=== PATIENT | female | born 1935 | race African-American/Black ===

== ENCOUNTER 2018-08-04 06:16 | Day surgery (SDC) | payer MEDICARE, MEDICAID ==
--- NOTE | 2018-08-02 10:51 | Pre-Procedure Note/Attestation ---
Pre-Procedure Note/Attestation Complete Prior to Procedure Planned Procedure: right Procedure Narrative: phaco with IOL Indications for Procedure Pre-Operative Diagnosis: cataract Attestation I attest that I discussed the nature of the procedure; its benefits; risks and complications; and alternatives (and the risks and benefits of such alternatives ), prior to the procedure, with the patient (or the patient's legal technical services representative). I attest that, if there was a reasonable possibility of needing a blood transfusion, the patient (or the patient's legal technical services representative) was given the [facility] standardized written summary, pursuant to the [place] Blood Safety Act ([place] Health and Safety Code # 1645, as amended). I attest that I re-evaluated the patient just prior to the surgery and that there has been no change in the patient's H&P, except as documented below: Wil Reyes MD Aug 02, 2018 10:50
--- NOTE | 2018-08-02 11:34 | Opthalmology H&P ---
Ophthalmology H&P H&P Chief Complaint: decreased vision in right eye HPI Vision Affects Ability to: read, focus/use eyes together, manage personal affairs HPI Narrative BLURRY VISION Exam Visual Acuity: OD;20/50 OS;20/50 Tension: OD; 12 OS;14 Eye Exam: normal OU: external exam, palpebral fissure-width, marginal reflex distance, levator function, corneas, anterior chambers, fundus exam; findings: lens - CORTICAL OU Assessment/Plan Diagnosis: (1) Cortical cataract of right eye Treatment Plan: cataract extraction w/ lens implant Goals of Treatment: improvement of vision, enhance quality of life Attestation Attestation The risks and benefits of the surgery as well as alternative procedures were explained to the patient in detail. Wil Reyes MD Aug 02, 2018 11:34
[2018-08-04] VITALS (9 sets, daily range): BP systolic 118–131; BP diastolic 68–89
[~2018-08-04] VITALS: Ht 167.6 cm; Wt 86.2 kg
[2018-08-04] MEDS ORDERED: Tetracaine 0.5% Opth 4ml Soln RIGHT EYE ONE (07:00)
[2018-08-04] MEDS ORDERED: Akten 3.5% 1ml Btl RIGHT EYE ONE (07:00)
[2018-08-04] MEDS ORDERED: Diclofenac Sod 0.1% Op Soln RIGHT EYE SCH (07:00)
[2018-08-04] MEDS: Cyclopentolate 1% Opth Sol 2ml RIGHT EYE SCH ×3 (09:45→10:06)
[2018-08-04] MEDS: Phenylephrine 10% Opth Soln 5ml RIGHT EYE SCH ×3 (09:46→10:06)
[2018-08-04] MEDS: Tropicamide 1% Opth 15ml Soln RIGHT EYE SCH ×3 (09:46→10:06)
[2018-08-04] MEDS: Tobramycin Op Soln 0.3% 5ml RIGHT EYE SCH ×3 (09:47→10:07)
[2018-08-04] MEDS ORDERED: EPINEPHrine 1mg/1ml Amp ONE (10:10)
[2018-08-04] MEDS ORDERED: BSS 500ml btl ONE (10:10)
[2018-08-04] MEDS ORDERED: Povidone-Iodine 5% opth solution ONE (10:11)
[2018-08-04] MEDS ORDERED: BSS 15ml BTL ONE (10:11)
[2018-08-04] MEDS ORDERED: Sodium Hyaluronate 14 mg/ml 0.85ml ONE (10:11)
[2018-08-04] MEDS ORDERED: Midazolam 2mg/2ml Inj ONE (10:14)
[2018-08-04] MEDS ORDERED: ASPIR-LOW81 MG ORAL (10:22)
[2018-08-04] MEDS ORDERED: ADALAT20 MG ORAL (10:22)
[2018-08-04] MEDS ORDERED: ELIQUIS5 MG PO (10:22)
[2018-08-04] MEDS ORDERED: LOSARTAN POTASS25 MG ORAL (10:22)
[2018-08-04] MEDS ORDERED: METOPROLOL SUCC50 MG ORAL (10:22)
--- NOTE | 2018-08-04 10:22 | Anethesia Preoperative Eval ---
Anesthesia Pre-op PMH/ROS General Date of Evaluation: Aug 04, 2018 Time of Evaluation: 10:18 Anesthesiologist: Linus ASA Score: ASA 2 Mallampati Score Class I : Soft palate, uvula, fauces, pillars visible Class II: Soft palate, uvula, fauces visible Class III: Soft palate, base of uvula visible Class IV: Only hard plate visible Mallampati Classification: Class II Surgeon: Amy Diagnosis: right eye cataract Surgical Procedure: Right eye cataract removal with IOL Anesthesia History: none Family History: no anesthesia problems Allergies: Coded Allergies: No Known Allergies (Unverified , 08/02/18) Medications: see eMAR Patient NPO?: Yes NPO Date: Aug 03, 2018 NPO Time: 21:00 Past Medical History Cardiovascular: Reports: HTN Pulmonary: Denies: asthma, COPD, [place], other Gastrointestinal/Genitourinary: Reports: other - gallstones removed, partial hysterectomy Neurologic/Psychiatric: Denies: dementia, CVA, depression/anxiety, TIA, other Endocrine: Denies: DM, hypothyroidism, steroids, other HEENT: Reports: cataract (L), cataract (R) Hematology/Immune: Reports: anemia Musculoskeletal/Integumentary: Reports: OA - knees Anesthesia Pre-op Phys. Exam Physician Exam Last Vital Signs Date Time Temp Pulse Resp B/P (MAP) Pulse Ox O2 Delivery O2 Flow Rate FiO2 08/04/18 09:57 Room Air Constitutional: NAD Neurologic: CN 2-12 intact Cardiovascular: RRR Respiratory: CTA Gastrointestinal: S/NT/ND Airway Exam Mallampati Score: Class II MO: full ROM: full Teeth: missing Dentures: upper, lower Anesthesia Pre-op A/P Labs chart reviewed Studies Pre-op Studies: EKG - Aflutter Risk Assessment & Plan Assessment: A&Ox3 Plan: MAC Status Change Before Surgery: No Pre-Antibiotics Given Within 1 Hr of Incision: No Rafaela Barriga CRNA Aug 04, 2018 10:22
[2018-08-04] MEDS ORDERED: Pilocarpine 2% Opth 15ml Soln ONE (10:30)
[2018-08-04] MEDS ORDERED: Maxitrol Opth Oint 3.5gm ONE (10:30)
[2018-08-04] MEDS ORDERED: LR 1000ml ONE (10:30)
[2018-08-04] MEDS ORDERED: Sterile Water Irrig 1000ml IRRIG ONE (10:30)
[2018-08-04] MEDS ORDERED: fentaNYL 100 mcg/2 mL IV PRN (10:30)
[2018-08-04] MEDS ORDERED: Dexamethasone 4mg/ml vial ONE (10:30)
[2018-08-04] MEDS ORDERED: Pred Forte 1% Opth Susp 1ml ONE (10:30)
[2018-08-04] MEDS ORDERED: NS Irrig 1000ml ONE (10:30)
[2018-08-04] MEDS ORDERED: fentaNYL 100 mcg/2 mL IV ONE (10:46)
--- NOTE | 2018-08-04 10:49 | Immediate Post-Op Evaluation ---
Immediate Post-Op Evalulation Immediate Post-Op Evalulation Procedure: right eye cataract removal with IOL Date of Evaluation: Aug 04, 2018 Time of Evaluation: 11:03 IV Fluids: LR 250 ml Blood Pressure Systolic: 130 Blood Pressure Diastolic: 81 Pulse Rate: 69 Respiratory Rate: 18 O2 Sat by Pulse Oximetry: 100 Temperature (Fahrenheit): 97.7 Pain Score (1-10): 0 Nausea: No Vomiting: No Complications none noted Patient Status: awake, reacts, patent Hydration Status: adequate Given Within 1 Hr of Incision: Rafaela Quarles CRNA Aug 04, 2018 10:49
--- NOTE | 2018-08-04 11:06 | 48 Hour Post Anesthesia Eval ---
Post Anesthesia Evaluation Procedure: right eye cataract removal with IOL Date of Evaluation: Aug 04, 2018 Time of Evaluation: 11:05 Blood Pressure Systolic: 134 0: 84 Pulse Rate: 81 Respiratory Rate: 8 Temperature (Fahrenheit): 97.7 O2 Sat by Pulse Oximetry: 99 Airway: patent Nausea: No Vomiting: No Pain Intensity: 0 Hydration Status: adequate Cardiopulmonary Status: WNL Mental Status/LOC: patient returned to baseline Follow-up care needed: patient intructions given Rafaela Barriga CRNA Aug 04, 2018 11:06
--- NOTE | 2018-08-04 18:00 | Pre-op HX & Phy Repo 2 SIG ---
DATE OF ADMISSION: 08/04/2018 PRESURGICAL INTERNAL MEDICINE HISTORY AND PHYSICAL REASON FOR EVALUATION: I was asked by Dr. Wil Reyes to see this 83-year-old female going for elective surgery on the right eye. The patient has a cataract, right eye. Please see Ophthalmology History and Physical by Dr. Wil Reyes. The patient was evaluated. Chart was reviewed. PAST MEDICAL HISTORY/REVIEW OF SYSTEMS: Remarkable for history of palpitation for the last 20 years. The patient has coronary angiogram 20 years ago. No angioplasty or surgery on heart. Denies history of diabetes. No history of thyroid problem. No history of respiratory problem, asthma, or bronchitis. Denies history of anemia or renal insufficiency. The patient has history of hypertension. PAST SURGICAL HISTORY: Recent partial thyroidectomy and coronary angiogram. The patient has also osteoarthritis of the knee more in the left than the right and receiving cortisone injection intraarticular, last February 2018. ALLERGIES: The patient denies allergies to medication or food. HABITS: No history of smoke or alcohol habits. No street drugs. FAMILY HISTORY: Father from complication of stroke and mother on dialysis, end-stage renal disease. ALLERGIES: Not known. PRESENT MEDICATIONS: Include Eliquis 2.5 mg and baby aspirin 81 mg daily, metoprolol 50 mg, nifedipine 30 mg daily, losartan 25 mg daily. PHYSICAL EXAMINATION: GENERAL: Alert, well-developed, well-nourished female, in her 80s. VITAL SIGNS: The patient's weight 192 pounds and height 5 feet 6 inches tall. The patient's BMI is 30 kg/m2. SKIN: Warm and clear. Dry. No rashes or open wounds. HEENT: Head is normocephalic and atraumatic. Ears, clear. No discharge. Eyes, full description per Dr. Wil Reyes. Mouth, clear and moist. Partial dentures, upper and lower. NECK: Supple. No jugular venous distention. Carotids artery +2. Trachea midline. . CHEST: No deformity or asymmetry. LUNGS: Clear to auscultation and percussion. No rales or rhonchi. HEART: Atrial fibrillation. No murmur. No ectopy. ABDOMEN: Soft. No palpable mass. No rebound. EXTREMITIES: No edema. Degenerative joint disease of the knee left more than right. No varices or calf tenderness. GENITOURINARY: No dysuria. No CVA tenderness. NERVOUS SYSTEM: No tremor. No nystagmus. LABORATORY AND DIAGNOSTIC DATA: ECG done in the June 2018, atrial fibrillation, tachycardia, septal [place], old. Laboratory pending. The patient is NPO since 9 p.m. yesterday. IMPRESSION: 1. Cataract, right eye. 2. Hypertension. 3. Palpitation. 4. Degenerative joint disease, left knee. 5. Atrial fibrillation with septal myocardial infarction on ECG. PLAN: Cataract extraction, right eye with intraocular lens implant per Dr. Wil Reyes. CONCLUSION: The patient's medical problems include atrial fibrillation. Denied chest pain or palpitation. At the present time, vital signs stable. The patient did not eat or drink from 9 p.m. yesterday. The patient's condition optimized for surgery. Thank you very much, Dr. Reyes, for privilege to participate presurgical care of this interesting patient. Marisa Diego M.D. DR: Sergio JOB#: [id number] CC:
[2018-08-05] MEDS ORDERED: Proparacaine 0.5% Opth Soln 15ml RIGHT EYE ONE (07:00)
--- NOTE | 2018-08-05 12:54 | Brief Operative Note ---
Immediate Post Operative Note Operative Note Chief Complaint: blurry vision Pre-op Diagnosis: cataract, OD Procedure: phaco with IOL, OD Post-op Diagnosis: Pseudophakia Post-op Diagnosis: same as pre-op Findings: consistent w/pre-op dx studies Surgeon: Amy Anesthesiologist: Linus Anesthesia: MAC Specimen: none Complications: none Condition: stable Fluids: LR Estimated Blood Loss: none Drains: none Implant(s) used?: Yes Wil Reyes MD Aug 05, 2018 12:54
--- NOTE | 2018-08-05 12:56 | Operative Note - PDOC ---
Operative Note Operative Note Date of Operation/Procedure: Aug 04, 2018 Chief Complaint: blurry vision Pre-op Diagnosis: cataract, OD Procedure: phaco with IOL, OD Post-op Diagnosis: Pseudophakia Post-op Diagnosis: same as pre-op Operative Findings: consistent w/pre-op dx studies Surgeon: Amy Anesthesiologist: Linus Anesthesia: MAC Specimen: none Complications: none Condition: stable Fluids: LR Estimated Blood Loss: none Drains: none Implant(s) used?: Yes Indications for Procedure cataract Description of Procedure This patient has been complaining visually significant cataract in the affected eye with the best corrected visual acuity under moderate glare conditions worse. The patient complains of difficulties with glare in performing activities of daily living and wants to manage personal affairs with comfort and accuracy and see well enough to move with safety at home and outdoors. The risks, benefits and alternatives of the procedure were discussed with the patient in the office prior to scheduling surgery. All questions from the patient were answered after the surgical procedure was explained in detail. The risks of the procedure as explained to the patient include, but are not limited to, pain, infection, bleeding, loss of vision, retinal detachment, need for further surgery, loss of lens nucleus, double vision, etc. Alternative procedures were discussed which include, to do nothing or seek a second opinion. Informed consent for this procedure was obtained from the patient. The patient was referred to a primary care physician for a cardiopulmonary clearance prior to surgery, after proper evaluation was done patient was properly scheduled for outpatient surgery. The patient was brought to the operating room where the anesthesiologist established I.V. lines and cardiac monitoring leads. Mild intravenous sedation was administered. The patient was then prepared with a 5% solution of povidone -iodine to the conjunctival fornix and lashes, and a 5% solution of povidone- iodine to the lids and periorbital skin. The patient was then draped in the usual sterile fashion. A lid speculum was then placed in the operative eye. A keratome blade was then used to create a biplanar incision into the anterior chamber. Viscoelastics was then instilled into the anterior chamber. A capsulorrhexis was then fashioned with an utrata forceps followed by a BSS and a G-27 cannula were then used to hydrodissect and hydro delineate the lens. Paracentesis incision was made at 3 o'clock with sharp blade. The phacoemulsification unit, after being properly adjusted and tested, was then used to emulsify the nucleus. Residual cortical material was aspirated with the irrigation and aspiration unit. [place] was then instilled into the anterior chamber. The corneal wound was then enlarged to the size of the optic with the mis keratome blade. The intraocular lens was then inspected for right power and size and thought to be satisfactory. Then the lens was gently placed in the capsular bag. Positioning within the capsular bag was confirmed by direct visualization. Optic centration was accomplished with a [place] hook. Viscoelastics was removed from the anterior chamber using the irrigation and aspiration unit. The corneal wound was then tested for leaks and none were found. The lid speculum were then removed. Sponge and needle counts were correct. An eye patch and shield were placed over the operative eye. The patient was taken to the recovery room in stable condition. There were no complications. The patient tolerated the procedure well. The patient was then transferred to the ambulatory surgery unit in stable and satisfactory condition , was given detailed written instructions and asked to follow up in the office the next day. Wil Reyes MD Aug 05, 2018 12:56
== END 2018-08-04 12:35 | disposition home or self-care (01) ==
LOC: SUR 06:16
DX: H25.011 Cortical age-related cataract, right eye (principal); I10 Essential (primary) hypertension; I48.91 Unspecified atrial fibrillation; I25.2 Old myocardial infarction; E89.0 Postprocedural hypothyroidism; M17.12 Unilateral primary osteoarthritis, left knee; Z79.82 Long term (current) use of aspirin
CPT/HCPCS: 66984; J0171; J1100; J2250; J3010; J3370; V2632; 94003; 94150

== ENCOUNTER 2018-09-08 05:50 | Day surgery (SDC) | payer MEDICARE, MEDICAID ==
--- NOTE | 2018-09-05 13:51 | Operative Note - PDOC ---
Operative Note Operative Note Date of Operation/Procedure: Sep 08, 2018 Chief Complaint: Blurry Vision Pre-op Diagnosis: Cortical Cataract Left Eye Procedure: Cataract Extraction With Inner Ocular Lens Implant Left Eye Post-op Diagnosis: same as pre-op Surgeon: Wil Reyes MD Anesthesia: MAC Specimen: none Complications: none Condition: stable Fluids: LR Estimated Blood Loss: none Drains: none Implant(s) used?: Yes Indications for Procedure Cortical Cataract Description of Procedure Cataract Extraction With Inner Ocular Lens Implant Left Eye Wil Reyes MD Sep 05, 2018 13:51
--- NOTE | 2018-09-05 13:54 | Opthalmology H&P ---
Ophthalmology H&P H&P Chief Complaint: decreased vision in left eye HPI Vision Affects Ability to: read, manage personal affairs Past Ocular History: glaucoma HPI Narrative Blurry Vision Left Eye Exam Visual Acuity: OD 20/40 OS 20/70 Eye Exam: normal OU: external exam, palpebral fissure-width, marginal reflex distance, levator function, corneas, anterior chambers, fundus exam; findings: lens - +2 CORTICAL CATARACT OS Assessment/Plan Treatment Plan: cataract extraction w/ lens implant Goals of Treatment: improvement of vision, enhance quality of life Attestation Attestation The risks and benefits of the surgery as well as alternative procedures were explained to the patient in detail. Wil Reyes MD Sep 05, 2018 13:54
--- NOTE | 2018-09-05 13:54 | Pre-Procedure Note/Attestation ---
Pre-Procedure Note/Attestation Complete Prior to Procedure Planned Procedure: left Procedure Narrative: Cataract Extraction With Inner Ocular Lens Implant Left Eye Indications for Procedure Pre-Operative Diagnosis: Cortical Cataract Left Eye Attestation I attest that I discussed the nature of the procedure; its benefits; risks and complications; and alternatives (and the risks and benefits of such alternatives ), prior to the procedure, with the patient (or the patient's legal eligibility services representative). I attest that, if there was a reasonable possibility of needing a blood transfusion, the patient (or the patient's legal eligibility services representative) was given the [facility] standardized written summary, pursuant to the [place] Blood Safety Act ([place] Health and Safety Code # 1645, as amended). I attest that I re-evaluated the patient just prior to the surgery and that there has been no change in the patient's H&P, except as documented below: Wil Reyes MD Sep 05, 2018 13:54
[2018-09-08] VITALS (7 sets, daily range): BP systolic 128–137; BP diastolic 70–88
[~2018-09-08] VITALS: Ht 167.6 cm; Wt 88.9 kg
[~2018-09-08 05:50] MED LIST: ADALAT20 MG ORAL; ASPIR-LOW81 MG ORAL; ELIQUIS5 MG PO; LOSARTAN POTASS25 MG ORAL; METOPROLOL SUCC50 MG ORAL
[2018-09-08] MEDS: Phenylephrine 10% Opth Soln 5ml LEFT EYE SCH ×3 (06:43→07:05)
[2018-09-08] MEDS: Diclofenac Sod 0.1% Op Soln LEFT EYE SCH ×3 (06:43→07:06)
[2018-09-08] MEDS: Cyclopentolate 1% Opth Sol 2ml LEFT EYE SCH ×3 (06:44→07:06)
[2018-09-08] MEDS: Tobramycin Op Soln 0.3% 5ml LEFT EYE SCH ×3 (06:44→07:06)
[2018-09-08] MEDS: Tropicamide 1% Opth 15ml Soln LEFT EYE SCH ×3 (06:44→07:05)
[2018-09-08] MEDS ORDERED: Proparacaine 0.5% Opth Soln 15ml LEFT EYE ONE (07:00)
[2018-09-08] MEDS ORDERED: Tetracaine 0.5% Opth 4ml Soln LEFT EYE ONE (07:00)
[2018-09-08] MEDS ORDERED: Akten 3.5% 1ml Btl LEFT EYE ONE (07:00)
[2018-09-08] MEDS ORDERED: Sodium Hyaluronate 14 mg/ml 0.85ml ONE (08:19)
[2018-09-08] MEDS ORDERED: BSS 15ml BTL ONE (08:19)
[2018-09-08] MEDS ORDERED: BSS 500ml btl ONE (08:19)
[2018-09-08] MEDS ORDERED: Povidone-Iodine 5% opth solution ONE (08:19)
[2018-09-08] MEDS ORDERED: EPINEPHrine 1mg/1ml Amp ONE (08:19)
[2018-09-08] MEDS ORDERED: LR 1000ml 1,000 ML IVLG SCH (08:46)
--- NOTE | 2018-09-08 08:46 | Anethesia Preoperative Eval ---
Anesthesia Pre-op PMH/ROS General Date of Evaluation: Sep 08, 2018 Time of Evaluation: 08:37 Anesthesiologist: Neha ASA Score: ASA 3 Mallampati Score Class I : Soft palate, uvula, fauces, pillars visible Class II: Soft palate, uvula, fauces visible Class III: Soft palate, base of uvula visible Class IV: Only hard plate visible Mallampati Classification: Class II Surgeon: Amy Diagnosis: L eye cataract Surgical Procedure: L eye cataract extraction Anesthesia History: none Family History: no anesthesia problems Allergies: Coded Allergies: No Known Allergies (Unverified , 08/02/18) Medications: see eMAR Patient NPO?: Yes Past Medical History Cardiovascular: Reports: HTN; Denies: CAD, [place], valve dz, arrhythmia, other Pulmonary: Denies: asthma, COPD, JORDAN, other Gastrointestinal/Genitourinary: Reports: GERD, CRI; Denies: ESRD, other Neurologic/Psychiatric: Reports: depression/anxiety; Denies: dementia, CVA, TIA, other Endocrine: Reports: hypothyroidism; Denies: DM, steroids, other HEENT: Reports: cataract (L), cataract (R); Denies: glaucoma, [place] (L), [place] (R), other Hematology/Immune: Reports: anemia - mild; Denies: DVT, bleeding disorder, other Musculoskeletal/Integumentary: Reports: OA; Denies: RA, DJD, DDD, edema, other Other: obesity PMH Narrative: as above PSxH Narrative: see chart Anesthesia Pre-op Phys. Exam Physician Exam Last Vital Signs Date Time Temp Pulse Resp B/P (MAP) Pulse Ox O2 Delivery O2 Flow Rate FiO2 09/08/18 07:09 Room Air 09/08/18 06:50 97.5 83 18 137/74 99 Constitutional: NAD Neurologic: CN 2-12 intact Cardiovascular: RRR, no M/R/G Respiratory: CTA Gastrointestinal: other - obesity Airway Exam Mallampati Score: Class III MO: limited Neck: stiff ROM: limited Teeth: missing Dentures: no upper, no lower Anesthesia Pre-op A/P Labs see chart Studies Pre-op Studies: EKG - SR Risk Assessment & Plan Assessment: ASA 3 Plan: MAC Status Change Before Surgery: No Pre-Antibiotics Drug: none Yimi Solomon MD Sep 08, 2018 08:46
[2018-09-08] MEDS ORDERED: Midazolam 2mg/2ml Inj ONE (08:50)
[2018-09-08] MEDS ORDERED: NS Irrig 1000ml ONE (09:00)
[2018-09-08] MEDS ORDERED: Propofol 200mg/20ml IV ONE (09:00)
[2018-09-08] MEDS ORDERED: Sterile Water Irrig 1000ml IRRIG ONE (09:00)
[2018-09-08] MEDS ORDERED: LR 1000ml ONE (09:00)
[2018-09-08] MEDS ORDERED: DiphenhydrAMINE 50mg/ml Inj IVP PRN (09:00)
[2018-09-08] MEDS ORDERED: fentaNYL 100 mcg/2 mL IV PRN (09:00)
[2018-09-08] MEDS ORDERED: acetaZOLAMIDE 500mg Inj ONE (09:24)
[2018-09-08] MEDS ORDERED: Pred Forte 1% Opth Susp 1ml ONE (09:45)
[2018-09-08] MEDS ORDERED: Maxitrol Opth Oint 3.5gm ONE (09:45)
[2018-09-08] MEDS ORDERED: Dexamethasone 4mg/ml vial ONE (09:45)
[2018-09-08] MEDS ORDERED: Pilocarpine 1% Opth 15ml Soln ONE (09:45)
--- NOTE | 2018-09-08 09:48 | Immediate Post-Op Evaluation ---
Immediate Post-Op Evalulation Immediate Post-Op Evalulation Procedure: L eye cataract extraction with IOL Date of Evaluation: Sep 08, 2018 Time of Evaluation: 09:47 IV Fluids: 300 Blood Products: none Estimated Blood Loss: none Urinary Output: none Blood Pressure Systolic: 134 Blood Pressure Diastolic: 85 Pulse Rate: 81 Respiratory Rate: 20 O2 Sat by Pulse Oximetry: 99 Temperature (Fahrenheit): 97.6 Pain Score (1-10): 1 Nausea: No Vomiting: No Complications none Patient Status: awake, patent, none Hydration Status: adequate Yimi Solomon MD Sep 08, 2018 09:48
[2018-09-09 11:24] VITALS: BP 112/54
--- NOTE | 2018-09-09 11:24 | 48 Hour Post Anesthesia Eval ---
Post Anesthesia Evaluation Procedure: L eye cataract extraction with IOL Date of Evaluation: Sep 09, 2018 Time of Evaluation: 12:20 Blood Pressure Systolic: 112 0: 54 Pulse Rate: 64 Respiratory Rate: 22 Temperature (Fahrenheit): 97.6 O2 Sat by Pulse Oximetry: 99 Airway: patent Nausea: No Vomiting: No Pain Intensity: 1 Hydration Status: adequate Cardiopulmonary Status: stable Mental Status/LOC: patient returned to baseline Follow-up Care/Observations: n/a Post-Anesthesia Complications: none Follow-up care needed: ready to discharge Yimi Solomon MD Sep 09, 2018 11:24
--- NOTE | 2018-09-09 14:59 | Brief Operative Note ---
Immediate Post Operative Note Operative Note Chief Complaint: blurry vision Pre-op Diagnosis: Cortical Cataract Left Eye Procedure: Cataract Extraction With Intra Ocular Lens Implant Left Eye Post-op Diagnosis: Pseudophakia Post-op Diagnosis: same as pre-op Findings: consistent w/pre-op dx studies Surgeon: Amy Anesthesiologist: Neha Anesthesia: MAC Specimen: none Complications: none Condition: stable Fluids: LR Estimated Blood Loss: none Drains: none Implant(s) used?: Yes Wil Reyes MD Sep 09, 2018 14:59
--- NOTE | 2018-09-09 15:01 | Operative Note - PDOC ---
Operative Note Operative Note Date of Operation/Procedure: Sep 08, 2018 Chief Complaint: blurry vision Pre-op Diagnosis: Cortical Cataract Left Eye Procedure: Cataract Extraction With Intra Ocular Lens Implant Left Eye Post-op Diagnosis: Pseudophakia Post-op Diagnosis: same as pre-op Operative Findings: consistent w/pre-op dx studies Surgeon: Amy Anesthesiologist: Neha Anesthesia: MAC Specimen: none Complications: none Condition: stable Fluids: LR Estimated Blood Loss: none Drains: none Implant(s) used?: Yes Indications for Procedure cataract Description of Procedure This patient has been complaining visually significant cataract in the affected eye with the best corrected visual acuity under moderate glare conditions worse. The patient complains of difficulties with glare in performing activities of daily living and wants to manage personal affairs with comfort and accuracy and see well enough to move with safety at home and outdoors. The risks, benefits and alternatives of the procedure were discussed with the patient in the office prior to scheduling surgery. All questions from the patient were answered after the surgical procedure was explained in detail. The risks of the procedure as explained to the patient include, but are not limited to, pain, infection, bleeding, loss of vision, retinal detachment, need for further surgery, loss of lens nucleus, double vision, etc. Alternative procedures were discussed which include, to do nothing or seek a second opinion. Informed consent for this procedure was obtained from the patient. The patient was referred to a primary care physician for a cardiopulmonary clearance prior to surgery, after proper evaluation was done patient was properly scheduled for outpatient surgery. The patient was brought to the operating room where the anesthesiologist established I.V. lines and cardiac monitoring leads. Mild intravenous sedation was administered. The patient was then prepared with a 5% solution of povidone -iodine to the conjunctival fornix and lashes, and a 5% solution of povidone- iodine to the lids and periorbital skin. The patient was then draped in the usual sterile fashion. A lid speculum was then placed in the operative eye. A keratome blade was then used to create a biplanar incision into the anterior chamber. Viscoelastics was then instilled into the anterior chamber. A 3-mm single pass clear corneal incision was made just anterior to the vascular arcade of the temporal limbus using a keratome. Anterior capsulorrhexis was created. The nucleus was hydrodissected and hydrodelineated, and was freely movable in the capsular bag. The nucleus was then phacoemulsified. Following the deep groove formation, the lens was split bimanually and epicortex removed under vacuum burst-mode phacoemulsification. Peripheral cortex was removed with the irrigation and aspiration handpiece. The capsular bag was expanded with viscoelastic. The intraocular lens was then inspected for right power and size and thought to be satisfactory. The implant was inspected under the microscope and found to be free of defects. The implant was inserted into the cartridge system under viscoelastic and placed in the capsular bag. The trailing haptic was positioned with the cartridge system. Viscoelastics was removed from the anterior chamber using the irrigation and aspiration unit. The corneal wound was then tested for leaks and none were found. The lid speculum were then removed. Sponge and needle counts were correct. An eye patch and shield were placed over the operative eye. The patient was taken to the recovery room in stable condition. There were no complications. The patient tolerated the procedure well. The patient was then transferred to the ambulatory surgery unit in stable and satisfactory condition , was given detailed written instructions and asked to follow up in the office the next day. Wil Reyes MD Sep 09, 2018 15:01
== END 2018-09-08 10:50 | disposition home or self-care (01) ==
LOC: SUR 05:50
DX: H25.012 Cortical age-related cataract, left eye (principal); H40.9 Unspecified glaucoma; I48.91 Unspecified atrial fibrillation; I12.9 Hypertensive chronic kidney disease with stage 1 through stage 4 chronic kidney disease, or unspecified chronic kidney disease; N18.3 Chronic kidney disease, stage 3 (moderate); K21.9 Gastro-esophageal reflux disease without esophagitis; F32.9 Major depressive disorder, single episode, unspecified; F41.9 Anxiety disorder, unspecified; D64.9 Anemia, unspecified; M19.90 Unspecified osteoarthritis, unspecified site; E66.9 Obesity, unspecified; E89.0 Postprocedural hypothyroidism; Z90.710 Acquired absence of both cervix and uterus; Z90.49 Acquired absence of other specified parts of digestive tract
CPT/HCPCS: 66984; J0171; J1100; J1120; J2250; J2704; J3010; J3370; V2632; 94003; 94150

== ENCOUNTER 2018-12-21 10:38 | Inpatient (IN) | payer MEDICARE, MEDICAID ==
[~2018-12-21] VITALS: Ht 167.6 cm; Wt 83.5 kg
--- NOTE | 2018-12-21 10:46 | NUR ---
ED Nurse Note: Pt came into the ER w/ complaints of SOB and left foot pain since yesterday. Pt is also noted to be coughing x 1 week. Pt is sating at 100% on RA upon arrival to ED. Pt is complaining of 10/10 left foot pain. Non radiating. Redness and swelling noted on the left big toe of pt. Area tender to touch. Pt has a hx of gout and HTN. Pt is A + O x4. Ambulatory. Skin warm to touch.
[2018-12-21 10:49] VITALS: BP 127/95
[2018-12-21] MEDS ORDERED: FLUTICASONE PRO16 G1 NASAL (10:51)
[2018-12-21] MEDS ORDERED: AMLODIPINE BESY10 MG ORAL (10:51)
[2018-12-21] MEDS ORDERED: ELIQUIS2.5 MG PO (10:51)
[2018-12-21] MEDS ORDERED: LATANOPROST 0.7.5 ML OP (10:51)
--- NOTE | 2018-12-21 10:58 | Emergency Room Report ---
History of Present Illness General Chief Complaint: Dyspnea/Respdistress Source: Patient Present Illness HPI Patient presents with 2 problems. The first is that she has pain in her foot that she believes is gout. This kept her awake last night. She was given colchicine last night but the pain still severe. She denies any fevers or chills. The second problem is that she's been coughing. The phlegm is not been clear. She also has been wheezing. Apparently she doesn't have an inhaler at this time but his been using a steroid nasal spray. She denies any chest pain. There's been no nausea, vomiting, diarrhea or dysuria. The family state that recently she was told there might be fluid around her heart. No specific diagnosis of CHF. Patient states she needs to be at a meeting tomorrow to plan a . Allergies: Coded Allergies: No Known Allergies (Unverified , 08/02/18) Patient History Past Medical History: see triage record Past Surgical History: vince, other - partial hysterectomy, cataract surgery Social History: Denies: smoking Social History Narrative with family Now: No Reviewed Nursing Documentation: PMH: Agreed; PSxH: Agreed Nursing Documentation-PMH Past Medical History: No History, Except For Hx Cardiac Problems: Yes Hx Hypertension: Yes Hx Cancer: Yes Hx Gastrointestinal Problems: Yes Review of Systems All Other Systems: negative except mentioned in HPI Physical Exam Vital Signs Date Time Temp Pulse Resp B/P (MAP) Pulse Ox O2 Delivery O2 Flow Rate FiO2 12/21/18 10:47 97.2 111 22 127/95 100 Room Air 12/21/18 10:49 100 Sp02 EP Interpretation: reviewed, normal General Appearance: well appearing, no apparent distress, GCS 15 Head: normocephalic Eyes: bilateral eye normal inspection, bilateral eye PERRL, bilateral eye EOMI ENT: moist mucus membranes Neck: supple Respiratory: chest non-tender, wheezing, expiration, other - coughing Cardiovascular #1: regular rate, rhythm Cardiovascular #2: 2+ radial (R) Gastrointestinal: normal inspection, normal bowel sounds, non tender, no mass, non-distended Musculoskeletal: back normal, normal range of motion, tender - 1st MTP joint L foot Neurologic: alert, oriented x3, grossly normal Psychiatric: mood/affect normal Skin: normal inspection, warm/dry Medical Decision Making Diagnostic Impression: Primary Impression: Pleural effusion, left Additional Impressions: Bronchospasm Left pulmonary infiltrate on CXR COPD exacerbation [facility] ER Course Patient presents with 2 problems. One is foot pain that she believes is gout. This will be evaluated with laboratory and treated with colchicine and a small dose of morphine. The second is that she has wheezing and cough. We need to exclude pneumonia, acute myocardial infarction, bronchitis, COPD exacerbation amongst others. This will be evaluated with EKG, chest x-ray and labs. The patient will be treated Solu-Medrol and breathing treatments. EKG without injury. CXR with L effusion and possible infiltrates. WBC normal. Uric acid normal. Renal insufficiency. UA normal. Improved with treatment. Less coughing with breathing treatments. Concern over effusion and possible infiltrates L. Admit med Dr. Nunez. Laboratory Tests Test 12/21/18 11:00 12/21/18 11:05 12/21/18 14:00 Lactic Acid Level 1.40 mmol/L (0.4-2.0) White Blood Count 9.8 K/UL (4.8-10.8) Red Blood Count 5.18 M/UL (4.20-5.40) Hemoglobin 12.1 G/DL (12.0-16.0) Hematocrit 39.2 % (37.0-47.0) Mean Corpuscular Volume 76 FL (80-99) L Mean Corpuscular Hemoglobin 23.4 PG (27.0-31.0) L Mean Corpuscular Hemoglobin Concent 30.8 G/DL (32.0-36.0) L Red Cell Distribution Width 18.8 % (11.6-14.8) H Platelet Count 279 K/UL (150-450) Mean Platelet Volume 8.0 FL (6.5-10.1) Neutrophils (%) (Auto) 77.0 % (45.0-75.0) H Lymphocytes (%) (Auto) 13.9 % (20.0-45.0) L Monocytes (%) (Auto) 8.4 % (1.0-10.0) Eosinophils (%) (Auto) 0.3 % (0.0-3.0) Basophils (%) (Auto) 0.4 % (0.0-2.0) Prothrombin Time 11.2 SEC (9.30-11.50) Prothrombin Time INR 1.1 (0.9-1.1) PTT 29 SEC (23-33) Sodium Level 143 MMOL/L (136-145) Potassium Level 3.9 MMOL/L (3.5-5.1) Chloride Level 107 MMOL/L (98-107) Carbon Dioxide Level 24 MMOL/L (21-32) Anion Gap 12 mmol/L (5-15) Blood Urea Nitrogen 25 mg/dL (7-18) H Creatinine 1.4 MG/DL (0.55-1.30) H Estimate Glomerular Filtration Rate mL/min (>60) Glucose Level 119 MG/DL (74-106) H Uric Acid 6.7 MG/DL (2.6-7.2) Calcium Level 8.6 MG/DL (8.5-10.1) Total Bilirubin 1.2 MG/DL (0.2-1.0) H Direct Bilirubin 0.2 MG/DL (0.0-0.3) Aspartate Amino Transferase (AST) 19 U/L (15-37) Alanine Aminotransferase (ALT) 13 U/L (12-78) Alkaline Phosphatase 79 U/L (46-116) Total Creatine Kinase 146 U/L (26-308) Troponin I 0.000 ng/mL (0.000-0.056) Pro-B-Type Natriuretic Peptide 1697 pg/mL (0-125) H Total Protein 7.8 G/DL (6.4-8.2) Albumin 3.1 G/DL (3.4-5.0) L Globulin 4.7 g/dL Albumin/Globulin Ratio 0.7 (1.0-2.7) L Urine Color Yellow Urine Appearance Cloudy Urine pH 5 (4.5-8.0) Urine Specific [place] 1.020 (1.005-1.035) Urine Protein 3+ (NEGATIVE) H Urine Glucose (UA) Negative (NEGATIVE) Urine Ketones 1+ (NEGATIVE) H Urine Blood 1+ (NEGATIVE) H Urine Nitrite Negative (NEGATIVE) Urine Bilirubin 2+ (NEGATIVE) H Urine Ictotest Negative (NEGATIVE) Urine Urobilinogen 8 MG/DL (0.0-1.0) H Urine Leukocyte Esterase 2+ (NEGATIVE) H Urine RBC 0-2 /HPF (0 - 2) Urine WBC 2-4 /HPF (0 - 2) Urine Squamous Epithelial Cells Many /LPF (NONE/OCC) H Urine Bacteria Few /HPF (NONE) EKG Diagnostic Results Rate: normal Rhythm: other - a fib ST Segments: no acute changes Rhythm Strip Diag. Results EP Interpretation: yes Rhythm: no PVC's, no ectopy, other - a fib rate 93 Chest X-Ray Diagnostic Results Chest X-Ray Diagnostic Results : Chest X-Ray Ordered: Yes # of Views/Limited/Complete: 1 View Indication: Other EP Interpretation: Yes Interpretation: no pneumothorax, other - L effusion and possible infiltrate Last Vital Signs Date Time Temp Pulse Resp B/P (MAP) Pulse Ox O2 Delivery O2 Flow Rate FiO2 12/21/18 16:00 97.4 85 19 120/70 (87) 98 12/21/18 14:35 Room Air 12/21/18 14:25 21 Status: improved Disposition: ADMITTED INPATIENT Condition: Serious Aryan Espinal MD Dec 21, 2018 10:57
[2018-12-21] MEDS ORDERED: Morphine Sulfate 4mg/ml Inj (IV USE ONLY) IVP ONE (11:00)
[2018-12-21] MEDS ORDERED: Ipratropium 0.02% Inh Soln 2.5ml UD HHN ONE (11:00)
[2018-12-21] MEDS ORDERED: Solu-MEDROL 125mg Inj IVP ONE (11:00)
[2018-12-21] MEDS ORDERED: Albuterol ud Inhalation HHN ONE (11:00)
--- NOTE | 2018-12-21 11:03 | NUR ---
ED Nurse Note: RT at the bedside.
--- NOTE | 2018-12-21 11:22 | NUR ---
ED Nurse Note: Notified radiology of xray order.
--- NOTE | 2018-12-21 11:26 | NUR ---
ED Nurse Note: Xray at the bedside.
[2018-12-21 11:30] LABS: BASOPHILS % (AUTO) 0.4 % (0.0-2.0); EOSINOPHILS % (AUTO) 0.3 % (0.0-3.0); HEMATOCRIT 39.2 % (37.0-47.0); HEMOGLOBIN 12.1 G/DL (12.0-16.0); LYMPHOCYTES % (AUTO) 13.9 % (20.0-45.0); MEAN CORPUSCULAR VOLUME 76 FL (80-99); MONOCYTES % (AUTO) 8.4 % (1.0-10.0); PLATELET COUNT 279 K/UL (150-450); RED BLOOD COUNT 5.18 M/UL (4.20-5.40); RED CELL DISTRIBUTION WIDTH 18.8 % (11.6-14.8); WHITE BLOOD COUNT 9.8 K/UL (4.8-10.8)
[2018-12-21 11:35] LABS: ANION GAP 12 mmol/L (5-15); BLOOD UREA NITROGEN 25 mg/dL (7-18); CALCIUM 8.6 MG/DL (8.5-10.1); CARBON DIOXIDE 24 MMOL/L (21-32); CHLORIDE 107 MMOL/L (98-107); CREATININE 1.4 MG/DL (0.55-1.30); POTASSIUM 3.9 MMOL/L (3.5-5.1); SODIUM 143 MMOL/L (136-145)
[2018-12-21 11:36] LABS: INR 1.1 (0.9-1.1)
[2018-12-21] MEDS ORDERED: cefTRIAXone 1 GM in NS 55 ML IVPB ONE (11:45)
[2018-12-21 11:47] LABS: ALANINE AMINOTRANSFERASE 13 U/L (12-78); ALBUMIN 3.1 G/DL (3.4-5.0); ALBUMIN/GLOBULIN RATIO 0.7 (1.0-2.7); ALKALINE PHOSPHATASE 79 U/L (46-116); ASPARTATE AMINO TRANSFERASE 19 U/L (15-37); BILIRUBIN,TOTAL 1.2 MG/DL (0.2-1.0); CREATINE KINASE 146 U/L (26-308)
[2018-12-21 11:53] LABS: BILIRUBIN,DIRECT 0.2 MG/DL (0.0-0.3)
[2018-12-21 12:56] VITALS: BP 127/66
--- NOTE | 2018-12-21 14:02 | NUR ---
ED Nurse Note: Tried giving report, RN unavailable. Was instructed to call back in 5-10 mins.
[2018-12-21 14:11] LABS: APPEARANCE,URINE CLOUDY; BILIRUBIN, URINE 2+ (NEGATIVE); GLUCOSE, URINE (UA) NEGATIVE (NEGATIVE); KETONES,URINE 1+ (NEGATIVE); LEUKOCYTE ESTERASE ,URINE 2+ (NEGATIVE); NITRITE,URINE NEGATIVE (NEGATIVE); PH,URINE 5 (4.5-8.0); PROTEIN,URINE 3+ (NEGATIVE); UROBILINOGEN,URINE 8 MG/DL (0.0-1.0)
--- NOTE | 2018-12-21 14:17 | NUR ---
ED Nurse Note: Gave telephone report to ROMY Shetty. Bed unavailable. Will try again in 5 mins.
[2018-12-21 14:22] LABS: COLOR,URINE YELLOW
--- NOTE | 2018-12-21 14:26 | NUR ---
ED Nurse Note: Pt transfered to medsurg unit. No acute distress noted. Left ER w/ all belongings.
[2018-12-21] MEDS ORDERED: Solu-MEDROL 125mg Inj IVP SCH ×2 (14:30→15:00)
[2018-12-21] MEDS ORDERED: cefTRIAXone 1 GM in D5W 55 ML IVPB SCH (14:30)
[2018-12-21] MEDS ORDERED: Acetaminophen 500mg (ES) tab ORAL PRN ×2 (14:30→14:45)
[2018-12-21 14:35] VITALS: BP 105/63
--- NOTE | 2018-12-21 14:35 | NUR ---
NURSE NOTES: Report received from ER , Jenae. Patient arrived to [facility] via gurney on RA, in stable condition. Belongings reviewed, signed by patient. Patient alert, oriented x4, calm. RH heplock intact, site asymptomatic. VSS. Denies SOB on RA, pain, or NV at this time. Non-productive cough, lungs with bilateral expiratory wheeze. Abdomen soft, non-tender. Left medial (inner) foot, great toe and second toe are areas where patient is experiencing pain/redness/mild, non-pitting swelling/tenderness to touch, skin remains intact. CMS +, wiggles, no NT, skin warm, pedal pulses palpable, bilateral pedal pushes are equal 3/5, bilateral hand grasps equal, 4/5. Patient oriented to room and to use call light for safety, bed in lowest position, will continue to monitor.
[2018-12-21] MEDS ORDERED: Albuterol/Ipratropium 3ml neb HHN SCH (15:00)
[2018-12-21 16:00] VITALS: BP 120/70
[2018-12-21] MEDS ORDERED: Eliquis 5mg tablet ORAL SCH (18:00)
[2018-12-21] MEDS: Albuterol/Ipratropium 3ml neb HHN SCH ×2 (19:00→23:00)
--- NOTE | 2018-12-21 19:45 | NUR ---
HAND-OFF: Report given to Fe STANTON.
--- NOTE | 2018-12-21 19:46 | NUR ---
NURSE NOTES: Received report & pt from ROMY Cortes. Pt lying in bed, a&ox4, in room air, family member at bedside. No s/s of acute distress & no c/o pain at this time. Noted left foot swelling, elevated extremity with icepack on. Pt aware that sputum specimen is needed & specimen cup at bedside. Bed in lowest position, call light within reach. Will continue to monitor. Addendum: 12/21/18 at 2051 by Fe Martínez RN IV site intact & S/L'd.
[2018-12-21 20:00] VITALS: BP 129/77
[2018-12-21] MEDS: Eliquis 5mg tablet ORAL SCH (20:22)
[2018-12-21] MEDS: Latanoprost 0.005% Opth 2.5ml Soln BOTH EYES SCH (20:22)
[2018-12-21] MEDS: Solu-MEDROL 40mg Inj IVP SCH (20:22)
[2018-12-22] VITALS (7 sets, daily range): BP systolic 138–154; BP diastolic 79–98
[2018-12-22] MEDS: Albuterol/Ipratropium 3ml neb HHN SCH ×6 (02:53→23:43)
--- NOTE | 2018-12-22 07:27 | NUR ---
HAND-OFF: Report given to Layla See RN. Pt in stable condition. Pt currently receiving breathing tx with RT. Denies pain. Endorsed to AM shift sputum culture still needed. Specimen cup at bedside & pt is also aware.
--- NOTE | 2018-12-22 07:48 | NUR ---
NURSE NOTES: Received report form ROMY Miramontes. Rounding done with outgoing nurse. Patient a/o x4 and getting breathing treatment at this time. RT is at bedside. No respiratory distress noted. Right hand IV site is intact. Denies any pain at this time. Bed in lowest position, call light within reach. Will continue to monitor.
[2018-12-22] MEDS ORDERED: Aspirin EC 81mg tab ORAL SCH (09:00)
[2018-12-22] MEDS ORDERED: Flonase Nasal Inhaler 16gm NASAL SCH (09:00)
[2018-12-22] MEDS ORDERED: Eliquis 5mg tablet ORAL SCH (09:00)
[2018-12-22] MEDS ORDERED: Losartan 25mg tab ORAL SCH (09:00)
[2018-12-22] MEDS: Aspirin EC 81mg tab ORAL SCH (09:01)
[2018-12-22] MEDS: Solu-MEDROL 40mg Inj IVP SCH ×2 (09:02→20:31)
[2018-12-22] MEDS: Losartan 25mg tab ORAL SCH (09:02)
[2018-12-22] MEDS: Eliquis 5mg tablet ORAL SCH ×2 (09:02→17:58)
[2018-12-22] MEDS: Flonase Nasal Inhaler 16gm NASAL SCH (10:24)
[2018-12-22] MEDS: cefTRIAXone 1 GM in D5W 55 ML IVPB SCH (12:02)
--- NOTE | 2018-12-22 12:16 | Diagnostic Imaging Report ---
Indication: Dyspnea Technique: One view of the chest Comparison: None Findings: Hazy opacity overlies the left chest, and there is some left perihilar atelectasis. There is blunting of left lateral costophrenic sulcus. Heart size is borderline enlarged. Right lung and pleural space are clear. There are degenerative changes of the right shoulder Impression: Before meals left chest opacity, may reflect infiltrate. There may also be some pleural fluid on the left. Left perihilar atelectasis Borderline cardiomegaly
--- NOTE | 2018-12-22 13:15 | History and Physical Report ---
DATE OF ADMISSION: 12/21/2018 CHIEF COMPLAINT: Shortness of breath and dizziness. HISTORY OF PRESENT ILLNESS: The patient is a pleasant 83-year-old female. She has a history of hypertensive heart disease, atrial fibrillation, possible CHF. She presented with complaints of one week of cold-like symptoms with cough, congestion, subjective fevers, chills, and night sweats. She had worsening dizziness, malaise, and weakness, eventually presented to the emergency room. On evaluation there, the patient's vital signs were stable. She was tachycardic. She had expiratory wheezing and cough. She had a chest x-ray that showed a possible left-sided effusion with infiltrates. The patient has been started on antibiotic therapy as well as steroids, now admitted for further evaluation and care. PAST MEDICAL HISTORY: As above. CURRENT MEDICATIONS: Reconciled and reviewed. ALLERGIES: None. FAMILY HISTORY: None. SOCIAL HISTORY: Negative for tobacco, ethanol, or drugs. REVIEW OF SYSTEMS: GENERAL: Positive fevers and chills. Positive sweats. HEENT: No headaches or visual changes. CARDIOPULMONARY: No chest pain. Positive shortness of breath, dry cough. GASTROINTESTINAL: No nausea or vomiting. GENITOURINARY: No urgency or frequency. MUSCULOSKELETAL: No joint pain or swelling. NEUROLOGIC: No evidence of seizures. PHYSICAL EXAMINATION: VITAL SIGNS: Temperature 96, pulse 80, respirations 20, and blood pressure 120/68. GENERAL: The patient is well developed, no apparent distress. HEART: Regular rate and rhythm. LUNGS: Diffuse wheezes. ABDOMEN: Soft, nontender, nondistended. EXTREMITIES: Without clubbing, cyanosis, or edema. LABORATORY AND DIAGNOSTIC DATA: White count 9, hemoglobin 12, and platelets 279. Sodium 142, potassium 3.9, BUN 25, creatinine 1.4, bicarb 24. Coags normal. UA was clear. Chest x-ray showed left-sided effusion with possible infiltrates. ASSESSMENT: This is a pleasant female with a history of hypertension, atrial fibrillation, congestive heart failure, admitted with complaints of shortness of breath secondary to pneumonia, asthma exacerbation, cannot rule out CHF exacerbation. PLAN: Cautious hydration. IV antibiotics. Respiratory treatments and intravenous steroids. We will follow pending cultures. We will monitor chest x-ray. Cardiology consultation has been obtained. Tito Nunez M.D. DR: BRIAN JOB#: [id number] CC:
--- NOTE | 2018-12-22 14:07 | NUR ---
CASE MANAGEMENT:REVIEW 83 YR OLD FEMALE FROM HOME TO ER CC; SOB AND COUGHING. LT FOOT PAIN AND SWELLING SI: COPD EXACERBATION. LT INFILTRATE 97.1 111 22 127/95 100% ON RA IS: DUONEB HHN IV SOLUMEDROL COLCHICINE PO IV ZOFRAN IV MORPHINE IV ROCEPHIN IV LEVAQUIN CXR BLOOD CX : MED/SURG STATUS 3 EAST INTERQUAL CRITERIA MET
--- NOTE | 2018-12-22 14:20 | Diagnostic Imaging Report ---
Indication: Cough Technique: 2 views of the chest Comparison: 12/21/2018 Findings: Lung appears less hazy. There is still evidence of pleural fluid on the left. There is persistent perihilar atelectasis on the left. Right lung and pleural space remain clear. The heart size is upper limits normal. The bones are remarkable for degenerative changes of the right shoulder Impression: Left pleural effusion versus scarring, unchanged over one day Apparent decrease in previously demonstrated hazy opacity in the left lung may reflect improving infiltrate Persistent perihilar atelectasis on the left
--- NOTE | 2018-12-22 19:38 | NUR ---
HAND-OFF: Report given to ROMY Miramontes.
--- NOTE | 2018-12-22 19:39 | NUR ---
NURSE NOTES: Received report & pt from ROMY Cortes. Pt lying in bed, a&ox4, in room air, family member at bedside. No s/s of acute distress & no c/o pain at this time. IV site intact & S/L'd. Bed in lowest position, call light within reach. Will continue to monitor. Addendum: 12/22/18 at 2003 by Fe Martínez RN CORRECTION: Received report & pt from ROMY Wells.
[2018-12-22] MEDS: Latanoprost 0.005% Opth 2.5ml Soln BOTH EYES SCH (20:31)
--- NOTE | 2018-12-22 20:46 | NUR ---
NURSE NOTES: Sputum specimen collected & sent down to lab
[2018-12-23] MEDS: Albuterol/Ipratropium 3ml neb HHN SCH ×6 (03:28→22:51)
[2018-12-23 04:00] VITALS: BP 155/85
--- NOTE | 2018-12-23 04:45 | Progress Note ---
DATE: 12/22/2018 CARDIOLOGY PROGRESS NOTE SUBJECTIVE: The patient states she feels somewhat less congested today. She felt worse last night. She denies palpitations or chest pain. OBJECTIVE: VITAL SIGNS: Blood pressure 148/85, pulse 99, respirations 16, and afebrile. LUNGS: Coarse breath sounds. Scattered rhonchi. HEART: Irregularly irregular rhythm. Normal S1, S2. ABDOMEN: Soft. EXTREMITIES: Trace edema. LABORATORY AND DIAGNOSTIC DATA: Chest x-ray reveals left pleural effusion versus scarring and left lung opacity. IMPRESSION: 1. Pneumonia. 2. Paroxysmal bronchospasm. 3. Atrial fibrillation with increased ventricular response. 4. Acute on chronic diastolic congestive heart failure. 5. Mild protein-calorie malnutrition. 6. Acute on chronic renal failure. PLAN: 1. Antimicrobials. 2. Respiratory hygiene. 3. Titration of anti-failure regimen. 4. Full anticoagulation for cardioembolic prophylaxis. 5. Cautious use of steroid. 6. We will advance therapy for rate control. Aryan Linares M.D. DR: MILTON JOB#: [id number] CC:
--- NOTE | 2018-12-23 07:30 | NUR ---
HAND-OFF: Report given to ROMY Jeffrey. Rounds done. Pt in stable condition.
[2018-12-23 08:00] VITALS: BP 150/86
[2018-12-23 08:06] LABS: HEMATOCRIT 38.3 % (37.0-47.0); HEMOGLOBIN 11.7 G/DL (12.0-16.0); MEAN CORPUSCULAR VOLUME 76 FL (80-99); PLATELET COUNT 314 K/UL (150-450); RED BLOOD COUNT 5.02 M/UL (4.20-5.40); RED CELL DISTRIBUTION WIDTH 18.1 % (11.6-14.8); WHITE BLOOD COUNT 18.8 K/UL (4.8-10.8)
[2018-12-23 08:37] LABS: ALANINE AMINOTRANSFERASE 19 U/L (12-78); ALBUMIN 2.9 G/DL (3.4-5.0); ALBUMIN/GLOBULIN RATIO 0.6 (1.0-2.7); ALKALINE PHOSPHATASE 87 U/L (46-116); ANION GAP 11 mmol/L (5-15); ASPARTATE AMINO TRANSFERASE 19 U/L (15-37); BILIRUBIN,TOTAL 0.6 MG/DL (0.2-1.0); BLOOD UREA NITROGEN 41 mg/dL (7-18); CALCIUM 8.6 MG/DL (8.5-10.1); CARBON DIOXIDE 25 MMOL/L (21-32); CHLORIDE 106 MMOL/L (98-107); CREATININE 1.5 MG/DL (0.55-1.30); POTASSIUM 4.1 MMOL/L (3.5-5.1); SODIUM 142 MMOL/L (136-145)
[2018-12-23] MEDS: Eliquis 5mg tablet ORAL SCH (09:13)
[2018-12-23] MEDS: Aspirin EC 81mg tab ORAL SCH (09:13)
[2018-12-23] MEDS: Losartan 25mg tab ORAL SCH (09:14)
[2018-12-23] MEDS: Solu-MEDROL 40mg Inj IVP SCH (09:15)
[2018-12-23] MEDS: Flonase Nasal Inhaler 16gm NASAL SCH (09:15)
[2018-12-23] MEDS ORDERED: Digoxin 0.125mg tab ONE (09:18)
[2018-12-23] MEDS: Digoxin 0.125mg tab ORAL SCH (09:23)
--- NOTE | 2018-12-23 11:19 | NUR ---
NURSE NOTES: Dr Linares phoned in regards to digoxin ordered, pt refused the digoxin and wants to speak to the Dr directly on purpose of medication. Cnc Specialist explained purpose of medication
[2018-12-23 12:00] VITALS: BP 150/90
--- NOTE | 2018-12-23 12:31 | NUR ---
NURSE NOTES: Pt will receive antibiotic after she eats
[2018-12-23] MEDS: cefTRIAXone 1 GM in D5W 55 ML IVPB SCH (12:52)
--- NOTE | 2018-12-23 14:24 | General Progress Note ---
Assessment/Plan Problem List: (1) COPD (chronic obstructive pulmonary disease) ICD Codes: J44.9 - Chronic obstructive pulmonary disease, unspecified SNOMED: 34721805 (2) CHF (congestive heart failure) ICD Codes: I50.9 - Heart failure, unspecified SNOMED: 89408411 (3) PNA (pneumonia) ICD Codes: J18.9 - Pneumonia, unspecified organism SNOMED: 401332198 (4) CKD (chronic kidney disease) ICD Codes: N18.9 - Chronic kidney disease, unspecified SNOMED: 988141503 Status: stable, progressing Assessment/Plan: cont iv abx resp rx po steroids taper o2 improving. dc planning soon Subjective ROS Limited/Unobtainable: No Constitutional: Reports: malaise, weakness HEENT: Reports: no symptoms Cardiovascular: Reports: no symptoms Respiratory: Reports: cough, shortness of breath Gastrointestinal/Abdominal: Reports: no symptoms Genitourinary: Reports: no symptoms Neurologic/Psychiatric: Reports: no symptoms Endocrine: Reports: no symptoms Hematologic/Lymphatic: Reports: no symptoms Allergies: Coded Allergies: No Known Allergies (Unverified , 08/02/18) All Systems: reviewed and negative except above Subjective no new complaints. less sob today. decreased infil on cxr. Objective Last 24 Hour Vital Signs Date Time Temp Pulse Resp B/P (MAP) Pulse Ox O2 Delivery O2 Flow Rate FiO2 12/23/18 12:00 98.1 157 150/90 (110) 12/23/18 10:41 104 18 100 Room Air 21 12/23/18 10:36 101 18 100 Room Air 21 12/23/18 09:14 150/86 12/23/18 09:14 106 150/86 12/23/18 09:00 Room Air 12/23/18 09:00 106 12/23/18 08:00 97.6 106 20 150/86 (107) 96 12/23/18 07:14 Room Air 21 12/23/18 07:14 Room Air 21 12/23/18 07:14 97 18 Room Air 21 12/23/18 04:00 97.6 88 18 155/85 (108) 98 12/23/18 03:35 77 20 99 Room Air 21 12/23/18 03:26 79 20 99 Room Air 21 12/22/18 23:53 98.1 97 17 145/95 (112) 100 12/22/18 23:51 71 20 99 Room Air 21 12/22/18 23:41 67 20 98 Room Air 21 12/22/18 21:00 Room Air 12/22/18 20:37 84 20 99 Room Air 21 12/22/18 20:23 102 20 99 Room Air 21 12/22/18 20:22 102 20 Room Air 21 12/22/18 20:00 98.3 99 16 148/85 (106) 99 12/22/18 16:00 98.2 94 20 146/79 (101) 97 12/22/18 14:39 90 18 99 Room Air 21 12/22/18 14:32 68 16 96 Room Air 21 Intake and Output 12/22/18 12/23/18 19:00 07:00 Intake Total 480 ml 360 ml Balance 480 ml 360 ml Intake Oral 480 ml 360 ml # Voids 3 2 Laboratory Tests 12/23/18 06:33: White Blood Count 18.8H, Red Blood Count 5.02, Hemoglobin 11.7L, Hematocrit 38.3 , Mean Corpuscular Volume 76L, Mean Corpuscular Hemoglobin 23.3L, Mean Corpuscular Hemoglobin Concent 30.5L, Red Cell Distribution Width 18.1H, Platelet Count 314, Mean Platelet Volume 6.9, Neutrophils (%) (Auto) , Lymphocytes (%) (Auto) , Monocytes (%) (Auto) , Eosinophils (%) (Auto) , Basophils (%) (Auto) , Differential Total Cells Counted 100, Neutrophils % ( Manual) 93H, Lymphocytes % (Manual) 6L, Monocytes % (Manual) 1, Eosinophils % ( Manual) 0, Basophils % (Manual) 0, Band Neutrophils 0, Platelet Estimate Adequate, Platelet Morphology Normal, Anisocytosis 2+, Microcytosis 1+, Sodium Level 142, Potassium Level 4.1, Chloride Level 106, Carbon Dioxide Level 25, Anion Gap 11, Blood Urea Nitrogen 41H, Creatinine 1.5H, Estimat Glomerular Filtration Rate , Glucose Level 151H, Calcium Level 8.6, Magnesium Level 2.1, Total Bilirubin 0.6, Aspartate Amino Transf (AST/SGOT) 19, Alanine Aminotransferase (ALT/SGPT) 19, Alkaline Phosphatase 87, Pro-B-Type Natriuretic Peptide 1374H, Total Protein 7.7, Albumin 2.9L, Globulin 4.8, Albumin/Globulin Ratio 0.6L Height (Feet): 5 Height (Inches): 6.00 Weight (Pounds): 185 General Appearance: WD/WN, alert Neck: supple Cardiovascular: normal peripheral pulses, normal rate, regular rhythm Respiratory/Chest: chest wall non-tender, lungs clear, normal breath sounds, no respiratory distress, no accessory muscle use Abdomen: normal bowel sounds, non tender, soft, no organomegaly, no mass Edema: no edema noted Arm (L), no edema noted Arm (R), no edema noted Leg (L), no edema noted Leg (R), no edema noted Pedal (L), no edema noted Pedal (R), no edema noted Generalized Tito Nunez MD Dec 23, 2018 14:24
[2018-12-23] MEDS ORDERED: NS 500ML ONE (14:50)
[2018-12-23] MEDS ORDERED: Tubing IV Secondary IV ONE (14:50)
--- NOTE | 2018-12-23 16:17 | NUR ---
NURSE NOTES: Error in entry , for v/s
--- NOTE | 2018-12-23 17:05 | NUR ---
NURSE NOTES: Pt in stable condition able to verbalize known needs. Current plan of care will be followed
[2018-12-23] MEDS: Eliquis 2.5mg tablet ORAL SCH (17:36)
--- NOTE | 2018-12-23 17:45 | NUR ---
NURSE NOTES: Pt is currently watching TV. Stable Condition . Family member at bedside earlier in shift
--- NOTE | 2018-12-23 19:40 | NUR ---
NURSE NOTES: Pt currently receiving breathing treatment no concerns at this time
--- NOTE | 2018-12-23 19:41 | NUR ---
HAND-OFF: Report given to Shani STANTON.
--- NOTE | 2018-12-23 19:42 | NUR ---
NURSE NOTES: Report taken from ROMY Jeffrey. Patient is awake and seated at the bedside, A&Ox4. Patient shows no signs of distress on room air, does have non-productive cough when taking deep breaths. patient has irregular heartbeat with auscultation, continue to monitor patient for fluid overload. IV site c/d/i and patent. Left big toe and 2nd digit swollen, patient has history of gout. Bed in lowest position, call light within reach.
[2018-12-23 20:00] VITALS: BP 142/91
[2018-12-23] MEDS: Latanoprost 0.005% Opth 2.5ml Soln BOTH EYES SCH (21:23)
[2018-12-24] VITALS: BP 143/85
[2018-12-24] MEDS: Albuterol/Ipratropium 3ml neb HHN SCH ×5 (02:23→19:46)
[2018-12-24 04:00] VITALS: BP 158/101
[2018-12-24 07:27] LABS: ALANINE AMINOTRANSFERASE 16 U/L (12-78); ALBUMIN 2.7 G/DL (3.4-5.0); ALBUMIN/GLOBULIN RATIO 0.6 (1.0-2.7); ALKALINE PHOSPHATASE 80 U/L (46-116); ANION GAP 8 mmol/L (5-15); ASPARTATE AMINO TRANSFERASE 17 U/L (15-37); BILIRUBIN,TOTAL 0.5 MG/DL (0.2-1.0); BLOOD UREA NITROGEN 44 mg/dL (7-18); CALCIUM 8.3 MG/DL (8.5-10.1); CARBON DIOXIDE 26 MMOL/L (21-32); CHLORIDE 108 MMOL/L (98-107); CREATININE 1.4 MG/DL (0.55-1.30); POTASSIUM 4.5 MMOL/L (3.5-5.1); SODIUM 142 MMOL/L (136-145)
--- NOTE | 2018-12-24 07:30 | Progress Note ---
DATE: 12/23/2018 CARDIOLOGY PROGRESS NOTE SUBJECTIVE: The patient is less short of breath. No chest pain noted. She denies palpitations. Monitored rhythm, atrial fibrillation. Rate in the low 100s. OBJECTIVE: VITAL SIGNS: Blood pressure 150/86, pulse 101, and respirations 18. LUNGS: Few rhonchi. HEART: Irregularly irregular rhythm. Normal S1, S2. ABDOMEN: Soft. EXTREMITIES: No edema. LABORATORY DATA: White count 18 and hemoglobin 11. Sodium 142, potassium 4.1, bicarbonate 25, BUN 41, and creatinine 1.5. Pro-natriuretic peptide 1300. Albumin 2.9. Chest x-ray revealed decreasing infiltrate. IMPRESSION: 1. Pneumonia, improving. 2. Chronic obstructive pulmonary disease exacerbation, recovering. 3. Leukocytosis due to steroids. 4. Atrial fibrillation still with suboptimal rate control. 5. Acute on chronic diastolic congestive heart failure. Clinically compensated. PLAN: 1. Steroid taper. 2. Antimicrobials. 3. Respiratory hygiene. 4. No additional diuresis at the present time. 5. Digitalization in progress. Aryan Linares M.D. DR: MILTON JOB#: [id number] CC:
[2018-12-24 07:35] LABS: HEMATOCRIT 36.3 % (37.0-47.0); HEMOGLOBIN 11.3 G/DL (12.0-16.0); MEAN CORPUSCULAR VOLUME 75 FL (80-99); PLATELET COUNT 307 K/UL (150-450); RED BLOOD COUNT 4.82 M/UL (4.20-5.40); RED CELL DISTRIBUTION WIDTH 18.3 % (11.6-14.8); WHITE BLOOD COUNT 15.5 K/UL (4.8-10.8)
--- NOTE | 2018-12-24 07:45 | Consultation ---
DATE OF CONSULTATION: 12/21/2018 CARDIOLOGY CONSULTATION REASON FOR CONSULTATION: Atrial fibrillation. HISTORY OF PRESENT ILLNESS: This 83-year-old female, presented to the emergency room with 1 week of cough, congestion, subjective fevers, chills, and night sweats. She also noted weakness, general malaise, and dizziness with ambulation. She was noted to be tachycardic with an irregular heart beat in the emergency room and her EKG confirmed atrial fibrillation. The patient is also on a chronic anticoagulation therapy. The patient has no known history of chronic obstructive pulmonary disease and denies history of smoking or tobacco exposure. PAST MEDICAL HISTORY: 1. Hypertension with hypertensive heart disease. 2. Osteoarthritis. 3. Paroxysmal atrial fibrillation. 4. Prior history of cataract surgery. 5. Status post hysterectomy. 6. History of gout. MEDICATIONS: Reviewed and reconciled. ALLERGIES: None known. REVIEW OF SYSTEMS: All systems negative other than noted above. PHYSICAL EXAM: VITAL SIGNS: Afebrile, blood pressure 127/95, pulse 111, respirations 22, and oxygen saturation on room air is 100%. GENERAL: Appears well, in no acute respiratory distress. HEENT: Conjunctiva pink. Sclerae are anicteric. Oropharynx clear. Mucous membranes moist. NECK: Supple. No jugular venous distention. No accessory muscle use. LUNGS: Expiratory wheezes and scattered rhonchi. CARDIAC: Irregularly irregular rhythm. Rapid rate. Normal S1, S2. A 1/6 systolic murmur at apex. ABDOMEN: Soft and nontender. EXTREMITIES: Good pulses. No edema. NEUROLOGIC: Nonfocal. DIAGNOSTIC DATA: Chest x-ray reveals small left pleural effusion and infiltrate. EKG reveals atrial fibrillation with nonspecific ST changes. LABORATORY DATA: Reviewed. IMPRESSION: 1. Community-acquired pneumonia. 2. Parapneumonic effusion. 3. Paroxysmal atrial fibrillation with increased ventricular response, which may be hemodynamically appropriate for current clinical setting. 4. Acute bronchospasm. 5. Diastolic dysfunction with acute on chronic congestive heart failure. PLAN: 1. Inhaled bronchodilators. 2. Empiric antimicrobials. 3. Respiratory hygiene. 4. Monitor volume status. 5. Hold diuresis at this time. 6. No beta-blockers in view of bronchospasm. 7. Consider digitalization for rate control. 8. Continue full anticoagulation with apixaban for cardioembolic prophylaxis. Aryan Mike Linares DR: MILTON JOB#: [id number] CC:
--- NOTE | 2018-12-24 07:50 | NUR ---
HAND-OFF: Report given to ROMY Jeffrey. Patient is awake and in bed, VS stable. approved Tylenol for all pain scale.
[2018-12-24 08:00] VITALS: BP 162/106
--- NOTE | 2018-12-24 08:07 | NUR ---
NURSE NOTES: Pt awake did not verbalize any concerns. Dr Reyes here seen pt. Made him aware of pt concerns in regards to Dr castellanos order for digoxin. Pt wanted to hear medication teaching from .
[2018-12-24] MEDS: Aspirin EC 81mg tab ORAL SCH (08:33)
[2018-12-24] MEDS: Eliquis 2.5mg tablet ORAL SCH ×2 (08:33→17:28)
[2018-12-24] MEDS: Digoxin 0.125mg tab ORAL SCH (08:34)
[2018-12-24] MEDS: Losartan 25mg tab ORAL SCH (08:35)
[2018-12-24] MEDS: Flonase Nasal Inhaler 16gm NASAL SCH (08:39)
--- NOTE | 2018-12-24 08:43 | NUR ---
NURSE NOTES: Pt compalining of ongoing night cough. Will follow up with Dr Reyes . Pt made aware that COPD can cause a chronic cough. Breathing room air at this time.
[2018-12-24] MEDS ORDERED: Solu-MEDROL 40mg Inj IVP SCH (09:00)
[2018-12-24 12:00] VITALS: BP 140/89
[2018-12-24] MEDS: cefTRIAXone 1 GM in D5W 55 ML IVPB SCH (13:40)
--- NOTE | 2018-12-24 13:40 | NUR ---
NURSE NOTES: Per pt request she wanted to finish eating before antibiotic was started. Straw Hat Plunger Operator inform pt that she will return
[2018-12-24 16:00] VITALS: BP 149/91
--- NOTE | 2018-12-24 18:45 | NUR ---
NURSE NOTES: Per request of pt Dr Nunez phoned for discharge, Per pt brother ., and his wake is tomorrow, gave okay for discharge. Prescriptions are in the chart. . Pt remained in stable condition. Received routine breathing treatment. Pt informed that Dr steel okay for discharge
--- NOTE | 2018-12-24 19:30 | NUR ---
NURSE NOTES: Pt lying in bed w/family at bedside, bed in lowest position, and call light within reach. Pt A&Ox4, VSS, and in no apparent distress. IV site intact/asymptomatic & H/L'd and skin intact. Pt scheduled to be D/C'd this evening; awaiting call from son to pick her up. Will continue to monitor.
[2018-12-24] MEDS: Latanoprost 0.005% Opth 2.5ml Soln BOTH EYES SCH (20:04)
--- NOTE | 2018-12-24 21:15 | NUR ---
NURSE NOTES: Pt escorted via w/c by WATCH ENGINE OPERATOR with family at side and all belongings accounted for. Pt signed D/C packet and received three rx from to fill. Removed IV site and ID wristband before D/C.
--- NOTE | 2018-12-25 01:05 | Cardiology Report ---
APPROVED REPORT EKG Measurement Heart [id number] Atrial fibrillation Abnormal ECG
--- NOTE | 2018-12-25 02:15 | Discharge Summary ---
DATE OF ADMISSION: 12/21/2018 DATE OF DISCHARGE: 12/24/2018 ADMISSION DIAGNOSES: 1. Chronic obstructive pulmonary disease exacerbation. 2. Community-acquired pneumonia. 3. Atrial fibrillation. 4. Hypertension. DISCHARGE DIAGNOSES: 1. Chronic obstructive pulmonary disease exacerbation. 2. Community-acquired pneumonia. 3. Atrial fibrillation. 4. Hypertension. HOSPITAL COURSE: The patient was admitted with complaints of shortness of breath secondary to pneumonia and COPD exacerbation. She has received intravenous steroids, respiratory treatments, and broad-spectrum IV antibiotics. Chest x-ray was improving on discharge. Cardiology adjusted the patient's cardiac regimen. On discharge, the patient was stable. She will be discharged on a steroid taper as well as antibiotics for additional 7 days. She has been instructed to return for any worsening shortness of breath, fevers, or chills. DISCHARGE MEDICATIONS: Please see discharge medication list for discharge medications. DIET: Cardiac diet. ACTIVITIES: Ad-andrés. FOLLOWUP: The patient will follow up with her PMD in one to two weeks. Tito Nunez M.D. DR: WALI JOB#: [id number] CC:
--- NOTE | 2018-12-25 04:15 | Progress Note ---
DATE: 12/24/2018 CARDIOLOGY PROGRESS NOTE SUBJECTIVE: The patient has no chest pain and less shortness of breath. Congestion has decreased. OBJECTIVE: VITAL SIGNS: Blood pressure 148/91, pulse 69, respirations 18, and afebrile. Room air oxygen sats 21%. Heart rate ranging from 56 to 105. LUNGS: Good breath sounds. No wheezes. HEART: Irregularly irregular rhythm. Normal S1, S2. ABDOMEN: Soft. EXTREMITIES: Trace edema. LABORATORY DATA: White count 15 and hemoglobin 11. Potassium 4.5, BUN 44, and creatinine 1.4. Albumin 2.7. IMPRESSION: 1. Chronic obstructive pulmonary disease with acute exacerbation. 2. Community-acquired pneumonia. 3. Acute on chronic diastolic congestive heart failure. 4. Atrial fibrillation, now with better rate control. 5. Prerenal azotemia and leukocytosis due to steroids. 6. Moderate protein-calorie malnutrition. PLAN: 1. Complete recovery as outpatient. 2. Continue digoxin at maintenance dosing. 3. Bronchodilator maintenance therapy. 4. Protein supplement. 5. No diuretics at this time. 6. Salt restriction and fluid restriction discussed. Aryan Linares M.D. DR: MILTON JOB#: [id number] CC:
== END 2018-12-24 21:05 | disposition home or self-care (01) | DRG 291 ==
LOC: EMR 10:59 → EDBEDREQ 14:21 → EMR 14:24 → 3E 14:43
DX: I13.0 Hypertensive heart and chronic kidney disease with heart failure and stage 1 through stage 4 chronic kidney disease, or unspecified chronic kidney disease (principal); J18.9 Pneumonia, unspecified organism; I50.33 Acute on chronic diastolic (congestive) heart failure; J44.0 Chronic obstructive pulmonary disease with (acute) lower respiratory infection; E44.1 Mild protein-calorie malnutrition; N17.9 Acute kidney failure, unspecified; J44.1 Chronic obstructive pulmonary disease with (acute) exacerbation; I48.0 Paroxysmal atrial fibrillation; N18.9 Chronic kidney disease, unspecified; M19.90 Unspecified osteoarthritis, unspecified site; M10.9 Gout, unspecified; J98.01 Acute bronchospasm; D72.829 Elevated white blood cell count, unspecified; T38.0X5A Adverse effect of glucocorticoids and synthetic analogues, initial encounter
CPT/HCPCS: 36415; 71045; 71046; 80053; 81003; 82248; 82550; 83605; 83735; 83880; 84484; 84550; 85007; 85025; 85610; 85730; 87040; 87070; 87205; 93005; 94640; 94664; 96365; 96368; 96375; 99285; J2405; J7620

== ENCOUNTER 2019-03-06 17:20 | Inpatient (IN) | payer MEDICARE, MEDICAID ==
[~2019-03-06] VITALS: Ht 165.1 cm; Wt 81.6 kg
[~2019-03-06 17:20] MED LIST changes: +AMLODIPINE BESY10 MG ORAL; +ELIQUIS2.5 MG PO; +FLUTICASONE PRO16 G1 NASAL; +LATANOPROST 0.7.5 ML OP
--- NOTE | 2019-03-06 17:46 | Emergency Room Report ---
History of Present Illness General Chief Complaint: Dizziness Source: Patient Present Illness HPI The patient presents with 2 days of dyspnea on exertion and weakness feeling that she may be close to passing out. This is mainly happening when she is walking. She is also felt some chest tightness during those times. There is also associated nausea without any vomiting. She is on Eliquis and has a history of atrial fibrillation. She states she has been able to take her medications. There is been no loss of consciousness. In addition she is complaining about increased left big toe pain from her gout. She denies any fevers or calf pain. There is also been no edema. When she walks she complains about 9/10 pain in the foot but at rest the pain is 5/10. She does not recognize the name of colchicine. The patient's recently had her thyroid checked by her doctor. She says she has had thyroid removal and states that her thyroid has been normal. She suffers from depression. The patient was admitted late November. Discharge diagnoses: 1. Chronic obstructive pulmonary disease exacerbation. 2. Community-acquired pneumonia. 3. Atrial fibrillation. 4. Hypertension. Allergies: Coded Allergies: No Known Allergies (Unverified , 08/02/18) Patient History Past Medical History: see triage record, old chart reviewed Past Surgical History: vince, hysterectomy, other - Cataracts, thyroidectomy Social History: Denies: smoking, alcohol use, drug use Social History Narrative With daughters Reviewed Nursing Documentation: PMH: Agreed; PSxH: Agreed Nursing Documentation-PM Past Medical History: No History, Except For Hx Cardiac Problems: Yes Hx Hypertension: Yes Hx Cancer: Yes Hx Gastrointestinal Problems: Yes Review of Systems All Other Systems: negative except mentioned in HPI Physical Exam Vital Signs Date Time Temp Pulse Resp B/P (MAP) Pulse Ox O2 Delivery O2 Flow Rate FiO2 03/06/19 17:23 98.2 97 18 150/80 (103) 98 Room Air Sp02 EP Interpretation: reviewed, normal General Appearance: well appearing, no apparent distress, GCS 15 Head: normocephalic, atraumatic Eyes: bilateral eye EOMI ENT: moist mucus membranes Neck: supple Respiratory: chest non-tender, lungs clear, normal breath sounds Cardiovascular #1: tachycardia, systolic murmur, irregularly irregular Cardiovascular #2: 2+ radial (R) Gastrointestinal: normal inspection, normal bowel sounds, non tender, no mass, non-distended Genitourinary: no CVA tenderness Musculoskeletal: digits/nails normal, no calf tenderness, Nehemias's Sign negative , tender - First metatarsal phalangeal joint without warmth or erythema Neurologic: alert, oriented x3, grossly normal Psychiatric: depressed affect Skin: no rash Medical Decision Making Diagnostic Impression: Primary Impression: DIXON (dyspnea on exertion) Additional Impressions: Renal insufficiency CHF (congestive heart failure) Qualified Codes: I50.33 - Acute on chronic diastolic (congestive) heart failure Podagra Atrial fibrillation Qualified Codes: I48.2 - Chronic atrial fibrillation ER Course Patient presents with dyspnea and weakness on exertion with an irregular heartbeat and exacerbation of her gout. Differential includes acute myocardial infarction, atrial fibrillation out of control, dehydration, congestive heart failure, exacerbation of gout, electrolyte imbalance amongst others. Patient will be evaluated with EKG, chest x-ray and labs. The patient is placed on a night monitor. A dose of colchicine is ordered. EKG without injury. CXR L process - chronic = possible effusion, scarring and atelectasis. Elevated renal function. Elevated BNP. Uric acid high end of normal. Lasix given. Rate improved without treatment. Consideration of tachyarrhythmia as contributing to dizziness and dyspnea on exertion. Pain improved after colchicine. Even though uric acid is normal suspect exacerbation of gout. UA not given. Admit tele obs, Dr. Nunez. Needs echo with "new" murmur and CHF. Consider CT of chest. Laboratory Tests Test 03/06/19 17:58 White Blood Count 8.7 K/UL (4.8-10.8) Red Blood Count 5.34 M/UL (4.20-5.40) Hemoglobin 12.6 G/DL (12.0-16.0) Hematocrit 42.6 % (37.0-47.0) Mean Corpuscular Volume 80 FL (80-99) Mean Corpuscular Hemoglobin 23.7 PG (27.0-31.0) L Mean Corpuscular Hemoglobin Concent 29.7 G/DL (32.0-36.0) L Red Cell Distribution Width 17.9 % (11.6-14.8) H Platelet Count 266 K/UL (150-450) Mean Platelet Volume 7.5 FL (6.5-10.1) Neutrophils (%) (Auto) 74.6 % (45.0-75.0) Lymphocytes (%) (Auto) 15.9 % (20.0-45.0) L Monocytes (%) (Auto) 7.8 % (1.0-10.0) Eosinophils (%) (Auto) 0.4 % (0.0-3.0) Basophils (%) (Auto) 1.3 % (0.0-2.0) Prothrombin Time 10.7 SEC (9.30-11.50) Prothrombin Time INR 1.0 (0.9-1.1) PTT 26 SEC (23-33) Sodium Level 145 MMOL/L (136-145) Potassium Level 3.6 MMOL/L (3.5-5.1) Chloride Level 108 MMOL/L (98-107) H Carbon Dioxide Level 24 MMOL/L (21-32) Anion Gap 13 mmol/L (5-15) Blood Urea Nitrogen 20 mg/dL (7-18) H Creatinine 1.6 MG/DL (0.55-1.30) H Estimate Glomerular Filtration Rate mL/min (>60) Glucose Level 134 MG/DL (74-106) H Uric Acid 7.2 MG/DL (2.6-7.2) Calcium Level 9.1 MG/DL (8.5-10.1) Total Bilirubin 1.6 MG/DL (0.2-1.0) H Direct Bilirubin 0.3 MG/DL (0.0-0.3) Aspartate Amino Transferase (AST) 18 U/L (15-37) Alanine Aminotransferase (ALT) 11 U/L (12-78) L Alkaline Phosphatase 87 U/L (46-116) Total Creatine Kinase 181 U/L (26-308) Troponin I 0.018 ng/mL (0.000-0.056) Pro-B-Type Natriuretic Peptide 1941 pg/mL (0-125) H Total Protein 7.3 G/DL (6.4-8.2) Albumin 3.8 G/DL (3.4-5.0) Globulin 3.5 g/dL Albumin/Globulin Ratio 1.1 (1.0-2.7) Lipase 198 U/L (73-393) EKG Diagnostic Results Rate: normal Rhythm: other - a fib ST Segments: no acute changes Rhythm Strip Diag. Results EP Interpretation: yes Rhythm: no PVC's, no ectopy, other - a fib Chest X-Ray Diagnostic Results Chest X-Ray Diagnostic Results : Chest X-Ray Ordered: Yes # of Views/Limited/Complete: 1 View Indication: Shortness of Breath Interpretation: no pneumothorax, other - scarring vs atelectasis and possible effusion (looks same as prior x-rays) Impression: Other Electronically Signed by: Electronically signed by Aryan Espinal MD Last Vital Signs Date Time Temp Pulse Resp B/P (MAP) Pulse Ox O2 Delivery O2 Flow Rate FiO2 03/07/19 00:00 71 03/07/19 00:00 98.0 18 149/85 (106) 100 03/06/19 20:58 Room Air Status: improved Disposition: PLACE IN OBSERVATION Condition: Serious Aryan Espinal MD Mar 06, 2019 17:46
[2019-03-06] MEDS ORDERED: COLCRYS0.6 M1 PO (18:27)
[2019-03-06] MEDS ORDERED: DIGOXIN125 MCG ORAL (18:27)
[2019-03-06] MEDS ORDERED: PREDNISONE10 MG ORAL (18:27)
[2019-03-06] MEDS ORDERED: LOSARTAN POTASS50 MG ORAL (18:27)
[2019-03-06] MEDS ORDERED: BREO ELLIPTA 11 EACH IH (18:27)
[2019-03-06 18:48] LABS: BASOPHILS % (AUTO) 1.3 % (0.0-2.0); EOSINOPHILS % (AUTO) 0.4 % (0.0-3.0); HEMATOCRIT 42.6 % (37.0-47.0); HEMOGLOBIN 12.6 G/DL (12.0-16.0); LYMPHOCYTES % (AUTO) 15.9 % (20.0-45.0); MEAN CORPUSCULAR VOLUME 80 FL (80-99); MONOCYTES % (AUTO) 7.8 % (1.0-10.0); NEUTROPHILS % (AUTO) 74.6 % (45.0-75.0); PLATELET COUNT 266 K/UL (150-450); RED BLOOD COUNT 5.34 M/UL (4.20-5.40); RED CELL DISTRIBUTION WIDTH 17.9 % (11.6-14.8); WHITE BLOOD COUNT 8.7 K/UL (4.8-10.8)
[2019-03-06 18:53] VITALS: BP 135/52
[2019-03-06 18:57] LABS: ANION GAP 13 mmol/L (5-15); BLOOD UREA NITROGEN 20 mg/dL (7-18); CALCIUM 9.1 MG/DL (8.5-10.1); CARBON DIOXIDE 24 MMOL/L (21-32); CHLORIDE 108 MMOL/L (98-107); CREATININE 1.6 MG/DL (0.55-1.30); POTASSIUM 3.6 MMOL/L (3.5-5.1); SODIUM 145 MMOL/L (136-145)
--- NOTE | 2019-03-06 19:03 | NUR ---
ED Nurse Note: pt walked in c/o being weak and dizzy and bi-lateral foor pain due to gout pain in feet. ermd eval done blood sent pt medicated . pt unable to provide urine at this time ermd aware. no further orders.
--- NOTE | 2019-03-06 19:05 | NUR ---
ED Nurse Note: Patient currently awake and alert with family member at bedside. vital signs stable and updated.
--- NOTE | 2019-03-06 19:05 | NUR ---
HAND-OFF: Report given to Maranda RAMIREZ.
[2019-03-06 19:08] LABS: ALANINE AMINOTRANSFERASE 11 U/L (12-78); ALBUMIN 3.8 G/DL (3.4-5.0); ALBUMIN/GLOBULIN RATIO 1.1 (1.0-2.7); ALKALINE PHOSPHATASE 87 U/L (46-116); ASPARTATE AMINO TRANSFERASE 18 U/L (15-37); BILIRUBIN,TOTAL 1.6 MG/DL (0.2-1.0); CREATINE KINASE 181 U/L (26-308)
[2019-03-06 19:10] LABS: BILIRUBIN,DIRECT 0.3 MG/DL (0.0-0.3)
[2019-03-06 19:15] VITALS: BP 151/87
--- NOTE | 2019-03-06 20:08 | NUR ---
ED Nurse Note: Called a moment ago and gave report to Parul STANTON. As soon as packet is ready, will take patient to tele and count $283.00 in walker that patient has on hand.
--- NOTE | 2019-03-06 20:20 | NUR ---
ED Nurse Note: Patient transported to floor without incident. Patterson verified along with belongings and signed off on.
--- NOTE | 2019-03-06 20:30 | NUR ---
NURSE NOTES: Pt admitted with CEREAL POPPER Maranda, with daughter at bedside. IV site on R hand 22g. VS - 169/100, 85 HR, 100% on RA, 97.5 F, 18 RR. quality improvement coordinator (rn) on - Afib 85 HR. Belongings signed by pt - including $283 walker. Per dtr and pt, daughter will bring home the home medications and family will be back in AM to bring home the walker. No wounds noted upon assessment. Bed in lowest position, call light and beloingings within reach.
[2019-03-06 20:58] VITALS: BP 169/100
--- NOTE | 2019-03-06 20:58 | NUR ---
NURSE NOTES: Received admission orders from Dr Nunez, will carry orders and continue to monitor pt.
[2019-03-06] MEDS ORDERED: AMLODIPINE BESYL5 MG ORAL (21:07)
[2019-03-06 21:15] VITALS: BP 150/80
[2019-03-07] VITALS: BP 149/85
[2019-03-07 04:00] VITALS: BP 145/80
--- NOTE | 2019-03-07 06:55 | NUR ---
NURSE NOTES: Pt had episode of Rapid Afib with HR going up to 170s during ambulation upon going to the restroom. Pt was asymptomatic and not complaining of dizziness. Pt back to Afib, HR 79. Dr. Nunez informed, no new orders given.
[2019-03-07 07:17] LABS: BASOPHILS % (AUTO) 0.7 % (0.0-2.0); EOSINOPHILS % (AUTO) 1.6 % (0.0-3.0); HEMATOCRIT 38.9 % (37.0-47.0); HEMOGLOBIN 11.9 G/DL (12.0-16.0); LYMPHOCYTES % (AUTO) 21.6 % (20.0-45.0); MEAN CORPUSCULAR VOLUME 78 FL (80-99); NEUTROPHILS % (AUTO) 67.1 % (45.0-75.0); PLATELET COUNT 256 K/UL (150-450); RED BLOOD COUNT 4.96 M/UL (4.20-5.40); RED CELL DISTRIBUTION WIDTH 18.2 % (11.6-14.8); WHITE BLOOD COUNT 7.8 K/UL (4.8-10.8)
--- NOTE | 2019-03-07 07:20 | NUR ---
HAND-OFF: Report given to ROMY Desai. No acute s/s of distress noted.
--- NOTE | 2019-03-07 07:31 | NUR ---
NURSE NOTES: Report received from ROMY Thomas. Pt. AOx4. Having breakfast. In RA. Denies any pain or SOB. R H 22g IV flushed, SL, site intact. $283 counted with RN and Pt. Kept at bedside at this time, agreed to send home with family today. Bed on lowest position, side rails upx2, brakes engaged. Call light within easy reach.
[2019-03-07 08:00] VITALS: BP 156/87
[2019-03-07 08:07] LABS: ALANINE AMINOTRANSFERASE 11 U/L (12-78); ALBUMIN 3.4 G/DL (3.4-5.0); ALBUMIN/GLOBULIN RATIO 1.3 (1.0-2.7); ALKALINE PHOSPHATASE 84 U/L (46-116); ANION GAP 10 mmol/L (5-15); ASPARTATE AMINO TRANSFERASE 19 U/L (15-37); BILIRUBIN,TOTAL 1.6 MG/DL (0.2-1.0); BLOOD UREA NITROGEN 21 mg/dL (7-18); CALCIUM 8.7 MG/DL (8.5-10.1); CARBON DIOXIDE 26 MMOL/L (21-32); CHLORIDE 109 MMOL/L (98-107); CREATININE 1.2 MG/DL (0.55-1.30); POTASSIUM 4.1 MMOL/L (3.5-5.1); SODIUM 145 MMOL/L (136-145)
[2019-03-07 08:09] LABS: BILIRUBIN,DIRECT 0.2 MG/DL (0.0-0.3)
[2019-03-07] MEDS: Aspirin EC 81mg tab ORAL SCH (08:47)
[2019-03-07] MEDS: Digoxin 0.125mg tab ORAL SCH (08:48)
[2019-03-07] MEDS: Flonase Nasal Inhaler 16gm NASAL SCH (08:49)
[2019-03-07] MEDS: Eliquis 2.5mg tablet ORAL SCH ×2 (08:49→17:40)
[2019-03-07] MEDS ORDERED: Eliquis 2.5mg tablet ORAL SCH (09:00)
[2019-03-07] MEDS: Breo Ellipta 100/25mcg - 14 dose INH SCH (09:00)
--- NOTE | 2019-03-07 11:11 | Diagnostic Imaging Report ---
Indication: Dyspnea Comparison: 12/22/2018 A single view chest radiograph was obtained. Findings: There is pleural parenchymal scarring in the left again demonstrated. No change seen. Heart is enlarged. Erosive changes of the right glenohumeral joint noted. IMPRESSION: No acute findings. No significant change
[2019-03-07 12:00] VITALS: BP 154/84
--- NOTE | 2019-03-07 12:33 | NUR ---
CASE MANAGEMENT: INITIAL REVIEW 84 YO F PRESENTED TO OUR ED FROM HOME CC: DIZZINESS PMHx: COPD. PNA. A FIB. HTN. SI:SYNCOPE. A FIB. T 98.2 HR 97 RR 18 B/P 150/80 SATS 98% ON RA CL 108 BUN 20 CR 1.6 GLU 134 TBILI 1.6 BNP 1940 IS: COLCHICINE PO X1 CXR IMPRESSION: No acute findings. No significant change. PATIENT ADMITTED TO TELE 03/06/2019 @ 1411 DCP: PATIENT TO BE DISCHARGED TO HOME ONCE MEDICALLY CLEARED. Addendum: 03/07/19 at 1509 by Alcira Addison INTERQUAL
[2019-03-07 16:00] VITALS: BP 140/88
--- NOTE | 2019-03-07 16:30 | History and Physical Report ---
DATE OF ADMISSION: 03/06/2019 CHIEF COMPLAINT: Shortness of breath. HISTORY OF PRESENT ILLNESS: The patient is a pleasant 84-year-old female, well known to me. She has a history of atrial fibrillation, hypertension, chronic obstructive pulmonary disease, and congestive heart failure. She has a prior history of gout. She presented with complaints of shortness of breath that started on the day of admission. According to the patient, she has noted the onset of worsening shortness of breath and dizziness. She has also had pain in the left foot. She is currently on colchicine for gout, but because of her dizziness and shortness of breath, she presented to the emergency room. On evaluation there, she was noted to be slightly hypertensive. Her troponin was negative. Chest x-ray showed a possible small effusion. The patient has been given a dose of intravenous Lasix. She is now admitted for further evaluation. PAST MEDICAL HISTORY: As above. PAST SURGICAL HISTORY: None. CURRENT MEDICATIONS: Reconciled and reviewed. ALLERGIES: None. FAMILY HISTORY: None. SOCIAL HISTORY: Negative for tobacco, ethanol, or drugs. REVIEW OF SYSTEMS: GENERAL: No fevers or chills. HEENT: No headaches or visual changes. CARDIOPULMONARY: No chest pain. Positive shortness of breath. Positive dizziness and palpitations. GASTROINTESTINAL: No nausea or vomiting. GENITOURINARY: No urgency or frequency. MUSCULOSKELETAL: No joint pain or swelling. NEUROLOGIC: No history of seizures. PHYSICAL EXAM: VITAL SIGNS: Temp 92, pulse 66, respirations 30, and blood pressure 151/87. GENERAL: The patient is well-developed, in no apparent distress. HEART: Irregularly irregular. LUNGS: Clear. ABDOMEN: Soft, nontender, and nondistended. EXTREMITIES: Without clubbing, cyanosis, or edema. LABORATORY DATA: White count 8, hemoglobin 12, and platelets 266,000. Sodium 145, potassium 3.6, chloride 108, bicarb 24, BUN 20, and creatinine is 1.6. ASSESSMENT: This is a pleasant female admitted with complaints of dizziness and shortness of breath suspect secondary to the patient's chronic atrial fibrillation, which may not always be rate controlled in addition to mild congestive heart failure exacerbation. PLAN: 1. Cautious diuresis. 2. Monitor on telemetry. 3. Repeat troponin. 4. Repeat chest x-ray. 5. PT and OT evaluations. 6. We will monitor on telemetry. Tito Nunez M.D. DR: WALI JOB#: [id number] CC:
--- NOTE | 2019-03-07 19:16 | NUR ---
HAND-OFF: Report given to ROMY Thomas. Patient in stable condition.
--- NOTE | 2019-03-07 19:25 | NUR ---
NURSE NOTES: Pt received from Osiel Desai alert and oriented x4 with family at bedside. No acute s/s of distress noted. IV site asymptomatic and patent. Bed in lowest position, call light and belongings within reach.
[2019-03-07 20:00] VITALS: BP 156/98
[2019-03-08] VITALS: BP 142/85
--- NOTE | 2019-03-08 00:51 | NUR ---
NURSE NOTES: Pt resting in bed with no acute s/s of distress noted. Calm and comfortable. Will continue to monitor. Bed in lowest position, call light and belongings within reach.
[2019-03-08 04:00] VITALS: BP 144/88
--- NOTE | 2019-03-08 06:35 | General Progress Note ---
Assessment/Plan Problem List: (1) COPD (chronic obstructive pulmonary disease) ICD Codes: J44.9 - Chronic obstructive pulmonary disease, unspecified SNOMED: 99474661 (2) CKD (chronic kidney disease) ICD Codes: N18.9 - Chronic kidney disease, unspecified SNOMED: 881043845 (3) Atrial fibrillation ICD Codes: I48.91 - Unspecified atrial fibrillation SNOMED: 20487967 Qualifiers: Qualified Codes: I48.2 - Chronic atrial fibrillation (4) DIXON (dyspnea on exertion) ICD Codes: R06.09 - Other forms of dyspnea SNOMED: 24376672 (5) CHF (congestive heart failure) ICD Codes: I50.9 - Heart failure, unspecified SNOMED: 13102974 Qualifiers: Qualified Codes: I50.33 - Acute on chronic diastolic (congestive) heart failure (6) Renal insufficiency ICD Codes: N28.9 - Disorder of kidney and ureter, unspecified SNOMED: 124920854, 790415782 Status: stable Assessment/Plan: po lasix follow up labs cards eval Subjective ROS Limited/Unobtainable: No Constitutional: Reports: malaise, weakness HEENT: Reports: no symptoms Cardiovascular: Reports: no symptoms Respiratory: Reports: no symptoms Gastrointestinal/Abdominal: Reports: no symptoms Genitourinary: Reports: no symptoms Neurologic/Psychiatric: Reports: no symptoms Endocrine: Reports: no symptoms Hematologic/Lymphatic: Reports: no symptoms Allergies: Coded Allergies: No Known Allergies (Unverified , 08/02/18) All Systems: reviewed and negative except above Subjective no complaints. sob better. still with afib with rvr but only when ambulating. no cp Objective Last 24 Hour Vital Signs Date Time Temp Pulse Resp B/P (MAP) Pulse Ox O2 Delivery O2 Flow Rate FiO2 03/08/19 04:00 77 03/08/19 04:00 98.1 74 18 144/88 (106) 99 03/08/19 00:00 98.0 78 18 142/85 (104) 99 03/08/19 00:00 77 03/07/19 21:00 Room Air 03/07/19 20:00 98.0 75 16 156/98 (117) 99 03/07/19 20:00 71 03/07/19 16:00 97.6 65 18 140/88 (105) 99 03/07/19 16:00 70 7/13/19 12:00 65 03/07/19 12:00 98.0 77 18 154/84 (107) 98 03/07/19 09:01 101 18 99 Room Air 21 03/07/19 09:00 Room Air 03/07/19 09:00 101 18 99 Room Air 21 03/07/19 08:49 91 156/87 03/07/19 08:48 91 03/07/19 08:00 98.9 91 18 156/87 (110) 100 03/07/19 08:00 66 Intake and Output 03/07/19 03/08/19 19:00 07:00 Intake Total 240 ml 140 ml Balance 240 ml 140 ml Intake Oral 240 ml 140 ml # Voids 3 Height (Feet): 5 Height (Inches): 6.00 Weight (Pounds): 170 General Appearance: WD/WN, alert Neck: supple Cardiovascular: normal rate, irregularly irregular Respiratory/Chest: chest wall non-tender, lungs clear Abdomen: normal bowel sounds, non tender, soft, no organomegaly Edema: no edema noted Arm (L), no edema noted Arm (R), no edema noted Leg (L), no edema noted Leg (R), no edema noted Pedal (L), no edema noted Pedal (R), no edema noted Generalized Tito Nunez MD Mar 08, 2019 06:35
--- NOTE | 2019-03-08 07:15 | NUR ---
NURSE NOTES: Report received from William STANTON. Pt in bed awake and oriented. No acute distress noted. On O2 2LPM via N/C. Denied any pain. IV site in R hand with 22G SL intact and asymptomatic. Bed in it's lowest position and locked. Call light within reach. Dr. Nunez came and checked the patient this monitor and all episodes of tachycardia with 165/min when walking to the bathroom reported. A-fib with 70-80/min of HR noted on public works technician. Will continue plan of care.
--- NOTE | 2019-03-08 07:30 | NUR ---
HAND-OFF: Report given to ROMY Arango. No acute s/s of distress noted.
[2019-03-08 08:00] VITALS: BP 133/86
[2019-03-08] MEDS: Eliquis 2.5mg tablet ORAL SCH ×2 (08:43→18:26)
[2019-03-08] MEDS: Furosemide 40mg tab ORAL SCH (08:43)
[2019-03-08] MEDS: Digoxin 0.125mg tab ORAL SCH (08:43)
[2019-03-08] MEDS: Flonase Nasal Inhaler 16gm NASAL SCH (08:43)
[2019-03-08] MEDS: Aspirin EC 81mg tab ORAL SCH (08:43)
[2019-03-08] MEDS: Breo Ellipta 100/25mcg - 14 dose INH SCH (08:56)
[2019-03-08 10:39] LABS: ALANINE AMINOTRANSFERASE 9 U/L (12-78); ALBUMIN 3.3 G/DL (3.4-5.0); ALKALINE PHOSPHATASE 82 U/L (46-116); ANION GAP 11 mmol/L (5-15); ASPARTATE AMINO TRANSFERASE 19 U/L (15-37); BILIRUBIN,TOTAL 1.6 MG/DL (0.2-1.0); BLOOD UREA NITROGEN 24 mg/dL (7-18); CALCIUM 8.5 MG/DL (8.5-10.1); CARBON DIOXIDE 24 MMOL/L (21-32); CHLORIDE 108 MMOL/L (98-107); CREATININE 1.3 MG/DL (0.55-1.30); POTASSIUM 3.6 MMOL/L (3.5-5.1); SODIUM 143 MMOL/L (136-145)
[2019-03-08 10:42] LABS: BILIRUBIN,DIRECT 0.2 MG/DL (0.0-0.3)
[2019-03-08 12:00] VITALS: BP 138/75
[2019-03-08 16:00] VITALS: BP 133/81
--- NOTE | 2019-03-08 19:07 | Cardiac Electrophysiology PN ---
Subjective Subjective [id number] Objective Last 24 Hour Vital Signs Date Time Temp Pulse Resp B/P (MAP) Pulse Ox O2 Delivery O2 Flow Rate FiO2 03/08/19 16:00 55 03/08/19 16:00 97.8 61 18 133/81 (98) 98 03/08/19 12:00 98.1 76 20 138/75 (96) 98 03/08/19 12:00 94 03/08/19 09:00 Room Air 03/08/19 08:58 92 18 97 Room Air 21 03/08/19 08:57 92 18 97 Room Air 21 03/08/19 08:43 84 03/08/19 08:43 84 133/86 03/08/19 08:00 98.2 84 18 133/86 (102) 98 03/08/19 08:00 72 03/08/19 04:00 77 03/08/19 04:00 98.1 74 18 144/88 (106) 99 03/08/19 00:00 98.0 78 18 142/85 (104) 99 03/08/19 00:00 77 03/07/19 21:00 Room Air 03/07/19 20:00 98.0 75 16 156/98 (117) 99 03/07/19 20:00 71 Intake and Output 03/07/19 03/08/19 19:00 07:00 Intake Total 240 ml 260 ml Balance 240 ml 260 ml Intake Oral 240 ml 260 ml # Voids 3 Laboratory Tests Test 03/08/19 07:59 Sodium Level 143 MMOL/L (136-145) Potassium Level 3.6 MMOL/L (3.5-5.1) Chloride Level 108 MMOL/L (98-107) H Carbon Dioxide Level 24 MMOL/L (21-32) Anion Gap 11 mmol/L (5-15) Blood Urea Nitrogen 24 mg/dL (7-18) H Creatinine 1.3 MG/DL (0.55-1.30) Estimat Glomerular Filtration Rate mL/min (>60) Glucose Level 139 MG/DL (74-106) H Uric Acid 8.6 MG/DL (2.6-7.2) H Calcium Level 8.5 MG/DL (8.5-10.1) Total Bilirubin 1.6 MG/DL (0.2-1.0) H Direct Bilirubin 0.2 MG/DL (0.0-0.3) Aspartate Amino Transf (AST/SGOT) 19 U/L (15-37) Alanine Aminotransferase (ALT/SGPT) 9 U/L (12-78) L Alkaline Phosphatase 82 U/L (46-116) Total Protein 6.5 G/DL (6.4-8.2) Albumin 3.3 G/DL (3.4-5.0) L Globulin 3.2 g/dL Albumin/Globulin Ratio 1.0 (1.0-2.7) Mark Correa MD Mar 08, 2019 19:07
--- NOTE | 2019-03-08 19:20 | NUR ---
NURSE NOTES: Received pt and report from ROMY Nash. Observed pt resting in bed with both eyes open. Pt is A/O x4. monitoring and evaluation advisor is in placed, IV site intact, asymptomatic, and patent. Bed is in the lowest position and locked. Call light within reach. No signs and symptoms of acute distress noted at this time. Will continue plan of care.
--- NOTE | 2019-03-08 19:33 | NUR ---
HAND-OFF: Report given to Lesley RN. Pt remains stable.
[2019-03-08 20:00] VITALS: BP 127/72
--- NOTE | 2019-03-08 20:15 | Consultation ---
DATE OF CONSULTATION: 03/08/2019 CARDIAC ELECTROPHYSIOLOGY CONSULTATION CONSULTING PHYSICIAN: Mark Correa M.D. REFERRING PHYSICIAN: Tito Nunez M.D. 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 HISTORY OF PRESENT ILLNESS: The patient is 84-year-old lady history of hypertension and paroxysmal atrial fibrillation as well as COPD and congestive heart failure as well as history of gout. The patient presented to the emergency room with increasing shortness of breath as well as dizziness and presyncope. The patient also had left foot pain and is on colchicine for gout. The patient was admitted in view of the dizziness and atrial fibrillation. The patient was noted to have heart rate going up to 170 with movement from the bed and at other times, heart rate dropping to 40s. Cardiac electrophysiology consultation was requested for further evaluation and management. REVIEW OF SYSTEMS: Negative other than what was mentioned in history of present illness. PAST MEDICAL HISTORY: As mentioned above. MEDICATIONS: Per reconciliation. ALLERGIES: She has no known drug allergies. FAMILY HISTORY: Noncontributory. SOCIAL HISTORY: Does not smoke or drink alcohol. PHYSICAL EXAMINATION: VITAL SIGNS: Blood pressure is 150/80, pulse is 40 to 180, respirations 18, and she is afebrile. HEAD AND NECK: Shows no JVD. LUNGS: Clear. CARDIOVASCULAR: Irregular S1 and S2 with no gallop or murmur. ABDOMEN: Soft. EXTREMITIES: No pitting edema. LABORATORY AND DIAGNOSTIC DATA: Her labs show white count of 7.8, hemoglobin of 12, hematocrit of 38.9, and platelet count is 256. Sodium is 142, potassium 3.6, BUN of 25, creatinine 1.3, and glucose of 139. Troponin is negative x2. ASSESSMENT AND PLAN: 1. 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 At the meantime the patient on the same day has bradycardia, heart rate dropping to 40s. The patient is currently only on digoxin 0.125 mg daily. We will not able to increase the dose or add a beta-davon or calcium-channel davon to her medical regimen in view of bradycardic episodes. Her best option would be a single-chamber pacemaker in view of her chronic atrial fibrillation. It is of note the patient had multiple pauses of more than two seconds as well. I will discuss this with the patient and if she agrees, we have to stop Eliquis. 2. Hypertension on amlodipine 5 mg daily and Lasix was discontinued. 3. Gout, on colchicine. The patient is also on p.r.n. clonidine and Lasix 40 mg p.o. daily. An echocardiogram is also pending at the time of this dictation. Thank you very much, Dr. Nunez, for allowing me to participate in the care of this patient. Please do not hesitate to contact me for any questions regarding my evaluation. Sincerely, Mark Correa M.D. DR: Derick JOB#: [id number] CC:
[2019-03-09] VITALS: BP 136/90
[2019-03-09 04:00] VITALS: BP 158/95
--- NOTE | 2019-03-09 07:47 | NUR ---
HAND-OFF: Report given to ROMY Dixon.
--- NOTE | 2019-03-09 07:48 | NUR ---
NURSE NOTES: Received report from ROMY Sutton. The patient is resting on the bed without acute distress or shortness of breath. The patient verbalized that she would like to have further discussion with Dr. Correa again regarding pacemaker placement for her condition as she was told regarding pacemaker placement with Dr. Correa in the past. The patient's bed in the lowest position, call light in reach, and fall and aspiration precaution reinforced. Intact and patent IV confirmed. Will continue plan of care.
[2019-03-09 08:00] VITALS: BP 138/90
--- NOTE | 2019-03-09 08:26 | General Progress Note ---
Assessment/Plan Problem List: (1) COPD (chronic obstructive pulmonary disease) ICD Codes: J44.9 - Chronic obstructive pulmonary disease, unspecified SNOMED: 51047673 (2) CKD (chronic kidney disease) ICD Codes: N18.9 - Chronic kidney disease, unspecified SNOMED: 592238532 (3) Atrial fibrillation ICD Codes: I48.91 - Unspecified atrial fibrillation SNOMED: 00875968 Qualifiers: Qualified Codes: I48.2 - Chronic atrial fibrillation (4) DIXON (dyspnea on exertion) ICD Codes: R06.09 - Other forms of dyspnea SNOMED: 71422814 (5) CHF (congestive heart failure) ICD Codes: I50.9 - Heart failure, unspecified SNOMED: 43816462 Qualifiers: Qualified Codes: I50.33 - Acute on chronic diastolic (congestive) heart failure (6) Renal insufficiency ICD Codes: N28.9 - Disorder of kidney and ureter, unspecified SNOMED: 383177980, 013631685 Status: stable Assessment/Plan: po lasix follow up labs cards eval appreciated pt agrees with pacemaker eliquis dcd, Subjective ROS Limited/Unobtainable: No Constitutional: Reports: malaise, weakness HEENT: Reports: no symptoms Cardiovascular: Reports: no symptoms Respiratory: Reports: no symptoms Gastrointestinal/Abdominal: Reports: no symptoms Genitourinary: Reports: no symptoms Neurologic/Psychiatric: Reports: no symptoms Endocrine: Reports: no symptoms Hematologic/Lymphatic: Reports: no symptoms Allergies: Coded Allergies: No Known Allergies (Unverified , 08/02/18) All Systems: reviewed and negative except above Subjective no complaints. sob better. no more svt. HR as low as 30 last night Objective Last 24 Hour Vital Signs Date Time Temp Pulse Resp B/P (MAP) Pulse Ox O2 Delivery O2 Flow Rate FiO2 03/09/19 04:00 55 03/09/19 04:00 98.2 66 18 158/95 (116) 98 03/09/19 00:00 109 03/09/19 00:00 98.3 72 18 136/90 (105) 100 03/08/19 21:00 Room Air 03/08/19 20:00 98.0 60 20 127/72 (90) 99 03/08/19 20:00 55 03/08/19 16:00 55 03/08/19 16:00 97.8 61 18 133/81 (98) 98 03/08/19 12:00 98.1 76 20 138/75 (96) 98 03/08/19 12:00 94 03/08/19 09:00 Room Air 03/08/19 08:58 92 18 97 Room Air 21 03/08/19 08:57 92 18 97 Room Air 21 03/08/19 08:43 84 03/08/19 08:43 84 133/86 Intake and Output 03/08/19 03/09/19 19:00 07:00 Intake Total 280 ml Balance 280 ml Intake Oral 280 ml # Voids 3 Height (Feet): 5 Height (Inches): 6.00 Weight (Pounds): 170 General Appearance: WD/WN, alert Neck: supple Cardiovascular: irregularly irregular Respiratory/Chest: chest wall non-tender, lungs clear, normal breath sounds Edema: no edema noted Arm (L), no edema noted Arm (R), no edema noted Leg (L), no edema noted Leg (R), no edema noted Pedal (L), no edema noted Pedal (R), no edema noted Generalized Objective General Appearance: WD/WN, alert Neck: supple Cardiovascular: normal rate, irregularly irregular Respiratory/Chest: chest wall non-tender, lungs clear Abdomen: normal bowel sounds, non tender, soft, no organomegaly Edema: no edema noted Arm (L), no edema noted Arm (R), no edema noted Leg (L), no edema noted Leg (R), no edema noted Pedal (L), no edema noted Pedal (R), no edema noted Generalized Tito Nunez MD Mar 09, 2019 08:26
[2019-03-09] MEDS: Breo Ellipta 100/25mcg - 14 dose INH SCH (08:44)
[2019-03-09] MEDS: Flonase Nasal Inhaler 16gm NASAL SCH ×2 (09:00→09:28)
[2019-03-09] MEDS: Aspirin EC 81mg tab ORAL SCH ×2 (09:00→09:28)
[2019-03-09] MEDS: Digoxin 0.125mg tab ORAL SCH (09:29)
[2019-03-09] MEDS: Furosemide 40mg tab ORAL SCH (09:29)
--- NOTE | 2019-03-09 10:50 | NUR ---
NURSE NOTES: Notified Dr. Correa regarding heart rate of 39 with rhythm of afib with slow VR. Will carry out the order as soon as receives it and will continue to monitor the patient.
[2019-03-09 12:00] VITALS: BP 145/93
--- NOTE | 2019-03-09 12:09 | NUR ---
NURSE NOTES: Notified Dr. Correa regarding heart rarte of 158 but the patient was in the rest room. Will continue to monitor the patient and will carry out order as soon as receives it.
--- NOTE | 2019-03-09 15:34 | NUR ---
NURSE NOTES: Notified Dr. Correa and Dr. Nunez regarding echocardiogram result, which was hyperdynamic systolic function and wall motion and EF of 70-75%. Per Dr. Nunez's progress note, the patient agreed for pacemaker placement and notified to Dr. Correa. will explain the risk of benefit of the procedure before moving on. Notified Dr. Nunez regarding bilirubin level of 1.6. Will continue to monitor the patient as carry out the order as soon as receives it.
[2019-03-09 16:00] VITALS: BP 124/86
--- NOTE | 2019-03-09 17:38 | Cardiac Electrophysiology PN ---
Assessment/Plan Assessment/Plan 1. 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 The patient is currently only on digoxin 0.125 mg daily. Not able to increase the dose or add a beta-davon or calcium-channel davon to her medical regimen in view of bradycardic episodes. Her best option would be a single-chamber pacemaker in view of her chronic atrial fibrillation. It is of note the patient had multiple pauses of more than two seconds as well. Patient now agreeable. Last Eliquis dose yesterday 03/08/19 2. Hypertension on amlodipine 5 mg daily and Lasix 40 po daily 3. Gout, on colchicine. DW RN and Dr Nunez Subjective Subjective HR still between 30s and 150s.In atrial fib Objective Last 24 Hour Vital Signs Date Time Temp Pulse Resp B/P (MAP) Pulse Ox O2 Delivery O2 Flow Rate FiO2 03/09/19 16:00 63 03/09/19 16:00 98.2 91 20 124/86 (99) 100 03/09/19 12:00 59 03/09/19 12:00 98.3 89 18 145/93 (110) 99 03/09/19 09:30 73 138/90 03/09/19 09:29 73 03/09/19 09:00 Room Air 03/09/19 08:45 55 16 99 Room Air 21 03/09/19 08:44 55 16 99 Room Air 21 03/09/19 08:00 97.9 73 18 138/90 (106) 98 03/09/19 08:00 64 03/09/19 04:00 55 03/09/19 04:00 98.2 66 18 158/95 (116) 98 03/09/19 00:00 109 03/09/19 00:00 98.3 72 18 136/90 (105) 100 03/08/19 21:00 Room Air 03/08/19 20:00 98.0 60 20 127/72 (90) 99 03/08/19 20:00 55 Intake and Output 03/08/19 03/09/19 18:59 06:59 Intake Total 400 ml Balance 400 ml Intake Oral 400 ml # Voids 3 Objective HEAD AND NECK: Shows no JVD. LUNGS: Clear. CARDIOVASCULAR: Irregular S1 and S2 with no gallop or murmur. ABDOMEN: Soft. EXTREMITIES: No pitting edema. Mark Correa MD Mar 09, 2019 17:38
--- NOTE | 2019-03-09 17:45 | NUR ---
NURSE NOTES: Dr. Correa was at the bedside and explained single chamber pacemaker placement thoroughly. The patient understood the procedure, and the consent signed by the patient. Called Jasbir Vazquez, the patient's son, for the consent of the procedure and phone consent obtained. The phone consent was witnessed by two nurses. Per Dr. Correa, Eliquis will be held tomorrow, and the procedure will happen on 03/11/2019. The patient verbalized understanding and signed consent obtained. Will continue plan of care.
[2019-03-09] MEDS ORDERED: BREO ELLIPTA 11 EACH IH (19:08)
--- NOTE | 2019-03-09 19:30 | NUR ---
HAND-OFF: Report given to ROMY Sutton. The patient is resting on the bed without acute distress or shortness of breath. Informed Lesley that Dr. Correa was notified regarding 2D Echo, Troponin level, and fluctuation of heart rate. Dr. Correa was at the bedside to explain single chamber pacemaker procedure and consent obtained from the patient and son with two witness. The patient's bed in the lowest position, call light in reach, and fall and aspiration precaution reinforced. Endorsed plan of care.
--- NOTE | 2019-03-09 19:36 | NUR ---
NURSE NOTES: Received pt and report from ROMY Dixon. Observed pt resting in bed comfortably with both eyes closed. Pt is A/O x4. 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 Hold Eliquis per Dr. Correa for scheduled pacemaker placement on 03/11/19. Procedure explained by Dr. Correa and consent signed by patent and telephone consent received by pt's son. Bed is in the lowest position and locked. Call light within reach. No signs and symptoms of acute distress noted at this time. Will continue plan of care.
[2019-03-09 20:00] VITALS: BP 148/95
--- NOTE | 2019-03-09 20:02 | NUR ---
CASE MANAGEMENT: REVIEW SI: A-FIB . SYNCOPE T 98.2 HR 55 RR 16 BP 145/93 SAT 99% ROOM AIR IS: LASIX PO QD DIGOXIN PO QD BREO INH QD TELEMETRY UNIT STATUS DCP: PATIENT IS FROM HOME PLAN: 2D ECHO
[2019-03-10] VITALS (7 sets, daily range): BP systolic 150–162; BP diastolic 83–105
[2019-03-10 07:16] LABS: BASOPHILS % (AUTO) 0.9 % (0.0-2.0); HEMATOCRIT 41.9 % (37.0-47.0); HEMOGLOBIN 12.8 G/DL (12.0-16.0); LYMPHOCYTES % (AUTO) 26.7 % (20.0-45.0); MEAN CORPUSCULAR VOLUME 78 FL (80-99); MONOCYTES % (AUTO) 7.2 % (1.0-10.0); NEUTROPHILS % (AUTO) 63.1 % (45.0-75.0); PLATELET COUNT 278 K/UL (150-450); RED BLOOD COUNT 5.36 M/UL (4.20-5.40); RED CELL DISTRIBUTION WIDTH 18.8 % (11.6-14.8); WHITE BLOOD COUNT 6.6 K/UL (4.8-10.8)
--- NOTE | 2019-03-10 07:28 | NUR ---
HAND-OFF: Report given to ROMY Dixon.
--- NOTE | 2019-03-10 07:30 | NUR ---
NURSE NOTES: Received report from ROMY Sutton. The patient is resting on the bed without acute distress or shortness of breath. The patient's bed in the lowest position, call light in reach, and fall and aspiration precaution reinforced. The patient is scheduled for single chamber pacemaker placement on 03/11/2019, and blood thinners will be held until the procedure date per order. The patient and family member signed the consent. Will continue plan of care.
[2019-03-10 07:41] LABS: ALANINE AMINOTRANSFERASE 8 U/L (12-78); ALBUMIN 3.1 G/DL (3.4-5.0); ALBUMIN/GLOBULIN RATIO 0.8 (1.0-2.7); ALKALINE PHOSPHATASE 84 U/L (46-116); ANION GAP 5 mmol/L (5-15); ASPARTATE AMINO TRANSFERASE 19 U/L (15-37); BILIRUBIN,TOTAL 1.6 MG/DL (0.2-1.0); BLOOD UREA NITROGEN 20 mg/dL (7-18); CALCIUM 8.9 MG/DL (8.5-10.1); CARBON DIOXIDE 27 MMOL/L (21-32); CHLORIDE 111 MMOL/L (98-107); CREATININE 1.2 MG/DL (0.55-1.30); POTASSIUM 3.8 MMOL/L (3.5-5.1); SODIUM 143 MMOL/L (136-145)
[2019-03-10 08:05] LABS: BILIRUBIN,DIRECT 0.2 MG/DL (0.0-0.3)
[2019-03-10] MEDS: Flonase Nasal Inhaler 16gm NASAL SCH (08:43)
[2019-03-10] MEDS: Aspirin EC 81mg tab ORAL SCH (08:43)
[2019-03-10] MEDS: Digoxin 0.125mg tab ORAL SCH (08:44)
[2019-03-10] MEDS: Furosemide 40mg tab ORAL SCH (08:44)
[2019-03-10] MEDS: Breo Ellipta 100/25mcg - 14 dose INH SCH (08:52)
--- NOTE | 2019-03-10 09:30 | NUR ---
NURSE NOTES: Dr. Nunez ordered direct bilirubin for elevation of bilirubin level. Will continue plan of care for the patient.
--- NOTE | 2019-03-10 11:37 | Cardiac Electrophysiology PN ---
Assessment/Plan Assessment/Plan 1. 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 The patient is currently only on digoxin 0.125 mg daily. Not able to increase the dose or add a beta-davon or calcium-channel davon to her medical regimen in view of bradycardic episodes. Her best option would be a single-chamber pacemaker in view of her chronic atrial fibrillation. It is of note the patient had multiple pauses of more than two seconds as well. Patient signed the consent. Last Eliquis dose 03/08/19. Scheduled for 09.24 tomorrow 2. Hypertension on amlodipine 5 mg daily and Lasix 40 po daily 3. Gout, on colchicine. ETHEL RN and Dr Nunez Subjective Subjective HR still drops to 30s-40 and up to 150s again. Scheduled for surgery tomorrow Objective Last 24 Hour Vital Signs Date Time Temp Pulse Resp B/P (MAP) Pulse Ox O2 Delivery O2 Flow Rate FiO2 03/10/19 09:00 Room Air 03/10/19 08:52 60 18 99 Room Air 21 03/10/19 08:52 62 18 100 Room Air 21 03/10/19 08:44 92 03/10/19 08:44 92 153/105 03/10/19 08:00 92 03/10/19 08:00 98.7 92 16 153/105 (121) 97 03/10/19 04:00 98.5 85 16 162/87 (112) 100 03/10/19 04:00 61 03/10/19 00:00 98.2 77 18 159/98 (118) 100 03/10/19 00:00 56 03/09/19 21:00 Room Air 03/09/19 20:00 98.1 80 16 148/95 (112) 98 03/09/19 20:00 73 03/09/19 16:00 63 03/09/19 16:00 98.2 91 20 124/86 (99) 100 03/09/19 12:00 59 03/09/19 12:00 98.3 89 18 145/93 (110) 99 Intake and Output 03/09/19 03/10/19 19:00 07:00 Intake Total 720 ml 150 ml Balance 720 ml 150 ml Intake Oral 720 ml 150 ml # Voids 5 1 # Bowel Movements 1 Laboratory Tests Test 03/10/19 06:15 White Blood Count 6.6 K/UL (4.8-10.8) Red Blood Count 5.36 M/UL (4.20-5.40) Hemoglobin 12.8 G/DL (12.0-16.0) Hematocrit 41.9 % (37.0-47.0) Mean Corpuscular Volume 78 FL (80-99) L Mean Corpuscular Hemoglobin 23.9 PG (27.0-31.0) L Mean Corpuscular Hemoglobin Concent 30.6 G/DL (32.0-36.0) L Red Cell Distribution Width 18.8 % (11.6-14.8) H Platelet Count 278 K/UL (150-450) Mean Platelet Volume 7.7 FL (6.5-10.1) Neutrophils (%) (Auto) 63.1 % (45.0-75.0) Lymphocytes (%) (Auto) 26.7 % (20.0-45.0) Monocytes (%) (Auto) 7.2 % (1.0-10.0) Eosinophils (%) (Auto) 2.0 % (0.0-3.0) Basophils (%) (Auto) 0.9 % (0.0-2.0) Sodium Level 143 MMOL/L (136-145) Potassium Level 3.8 MMOL/L (3.5-5.1) Chloride Level 111 MMOL/L (98-107) H Carbon Dioxide Level 27 MMOL/L (21-32) Anion Gap 5 mmol/L (5-15) Blood Urea Nitrogen 20 mg/dL (7-18) H Creatinine 1.2 MG/DL (0.55-1.30) Estimat Glomerular Filtration Rate mL/min (>60) Glucose Level 88 MG/DL (74-106) Calcium Level 8.9 MG/DL (8.5-10.1) Magnesium Level 1.9 MG/DL (1.8-2.4) Total Bilirubin 1.6 MG/DL (0.2-1.0) H Direct Bilirubin 0.2 MG/DL (0.0-0.3) Aspartate Amino Transf (AST/SGOT) 19 U/L (15-37) Alanine Aminotransferase (ALT/SGPT) 8 U/L (12-78) L Alkaline Phosphatase 84 U/L (46-116) Total Protein 7.0 G/DL (6.4-8.2) Albumin 3.1 G/DL (3.4-5.0) L Globulin 3.9 g/dL Albumin/Globulin Ratio 0.8 (1.0-2.7) L Objective HEAD AND NECK: Shows no JVD. LUNGS: Clear. CARDIOVASCULAR: Irregular S1 and S2 with no gallop or murmur. ABDOMEN: Soft. EXTREMITIES: No pitting edema. Mark Correa MD Mar 10, 2019 11:37
--- NOTE | 2019-03-10 17:17 | General Progress Note ---
Assessment/Plan Problem List: (1) COPD (chronic obstructive pulmonary disease) ICD Codes: J44.9 - Chronic obstructive pulmonary disease, unspecified SNOMED: 03500542 (2) CKD (chronic kidney disease) ICD Codes: N18.9 - Chronic kidney disease, unspecified SNOMED: 628103638 (3) Atrial fibrillation ICD Codes: I48.91 - Unspecified atrial fibrillation SNOMED: 74855326 Qualifiers: Qualified Codes: I48.2 - Chronic atrial fibrillation (4) DIXON (dyspnea on exertion) ICD Codes: R06.09 - Other forms of dyspnea SNOMED: 54392356 (5) CHF (congestive heart failure) ICD Codes: I50.9 - Heart failure, unspecified SNOMED: 72972074 Qualifiers: Qualified Codes: I50.33 - Acute on chronic diastolic (congestive) heart failure (6) Renal insufficiency ICD Codes: N28.9 - Disorder of kidney and ureter, unspecified SNOMED: 564295989, 437842764 Status: stable Assessment/Plan: po lasix follow up labs cards eval appreciated pt agrees with pacemaker eliquis dcd, Subjective ROS Limited/Unobtainable: No Constitutional: Reports: weakness HEENT: Reports: no symptoms Cardiovascular: Reports: no symptoms Respiratory: Reports: no symptoms Gastrointestinal/Abdominal: Reports: no symptoms Genitourinary: Reports: no symptoms Neurologic/Psychiatric: Reports: no symptoms Endocrine: Reports: no symptoms Hematologic/Lymphatic: Reports: no symptoms Allergies: Coded Allergies: No Known Allergies (Unverified , 08/02/18) All Systems: reviewed and negative except above Subjective no complaints. sob better. no more svt unless walking 150s Objective Last 24 Hour Vital Signs Date Time Temp Pulse Resp B/P (MAP) Pulse Ox O2 Delivery O2 Flow Rate FiO2 03/10/19 16:00 98.9 77 18 153/93 (113) 100 03/10/19 12:00 97.7 97 18 150/95 (113) 97 03/10/19 12:00 67 03/10/19 09:00 Room Air 03/10/19 08:52 60 18 99 Room Air 21 03/10/19 08:52 62 18 100 Room Air 21 03/10/19 08:44 92 03/10/19 08:44 92 153/105 03/10/19 08:00 92 03/10/19 08:00 98.7 92 16 153/105 (121) 97 03/10/19 04:00 98.5 85 16 162/87 (112) 100 03/10/19 04:00 61 03/10/19 00:00 98.2 77 18 159/98 (118) 100 03/10/19 00:00 56 03/09/19 21:00 Room Air 03/09/19 20:00 98.1 80 16 148/95 (112) 98 03/09/19 20:00 73 Intake and Output 03/09/19 03/10/19 19:00 07:00 Intake Total 720 ml 150 ml Balance 720 ml 150 ml Intake Oral 720 ml 150 ml # Voids 5 1 # Bowel Movements 1 Laboratory Tests 03/10/19 06:15: White Blood Count 6.6, Red Blood Count 5.36, Hemoglobin 12.8, Hematocrit 41.9, Mean Corpuscular Volume 78L, Mean Corpuscular Hemoglobin 23.9L, Mean Corpuscular Hemoglobin Concent 30.6L, Red Cell Distribution Width 18.8H, Platelet Count 278, Mean Platelet Volume 7.7, Neutrophils (%) (Auto) 63.1, Lymphocytes (%) (Auto) 26.7, Monocytes (%) (Auto) 7.2, Eosinophils (%) (Auto) 2.0, Basophils (%) (Auto) 0.9, Sodium Level 143, Potassium Level 3.8, Chloride Level 111H, Carbon Dioxide Level 27, Anion Gap 5, Blood Urea Nitrogen 20H, Creatinine 1.2, Estimat Glomerular Filtration Rate , Glucose Level 88, Calcium Level 8.9, Magnesium Level 1.9, Total Bilirubin 1.6H, Direct Bilirubin 0.2, Aspartate Amino Transf (AST/SGOT) 19, Alanine Aminotransferase (ALT/SGPT) 8L, Alkaline Phosphatase 84, Total Protein 7.0, Albumin 3.1L, Globulin 3.9, Albumin/ Globulin Ratio 0.8L Height (Feet): 5 Height (Inches): 6.00 Weight (Pounds): 170 Objective General Appearance: WD/WN, alert Neck: supple Cardiovascular: normal rate, irregularly irregular Respiratory/Chest: chest wall non-tender, lungs clear Abdomen: normal bowel sounds, non tender, soft, no organomegaly Edema: no edema noted Arm (L), no edema noted Arm (R), no edema noted Leg (L), no edema noted Leg (R), no edema noted Pedal (L), no edema noted Pedal (R), no edema noted Generalized Tito Nunez MD Mar 10, 2019 17:17
--- NOTE | 2019-03-10 19:30 | NUR ---
HAND-OFF: Report given to ROMY Dominguez. The patient is resting on the bed without acute distress or shortness of breath. The patient's bed in the lowest position, call light in reach, and fall and aspiration precaution reinforced. Informed the nurse and reminded the patient again regarding single chamber permanent pacer implantation that will happen on 03/11/2019. Informed that NPO from midnight, hold blood thinner, and PT/ PTT tomorrow morning to the patient and ROMY Dominguez. Consent for the procedure tomorrow was obtained with the patient and phone consent obtained from son with two nurses' witness. Informed normal level of direct bilirubin. Endorsed plan of care.
--- NOTE | 2019-03-10 19:30 | NUR ---
NURSE NOTES: Got report from Destiny STANTON. Pt in stable condition. Denies any pain. No s/s of distress or discomfort noted. Pt resting in bed comfortably. Bed in low and locked position, call light within, bedside table within reach. Continue to monitor.
[2019-03-11] VITALS (13 sets, daily range): BP systolic 120–160; BP diastolic 74–98
--- NOTE | 2019-03-11 07:20 | NUR ---
HAND-OFF: Report given to Min RN. Endorsed plan of care.
--- NOTE | 2019-03-11 07:20 | NUR ---
NURSE NOTES: Report received from Alberto STANTON. Pt alert and oriented lying in bed awake. No c/o pain. No Acute distress noted. Rhythm with A-fib reported. IV site R hand 2ith 22G SL intact and asymptomatic. Bed in it's lowest position and locked. Reinforced to use call light for anytime especially for bathroom. On NPO for pacemaker placement scheduled today. Will continue to plan of care
--- NOTE | 2019-03-11 07:20 | NUR ---
NURSE NOTES: Report received from Alberto STANTON. Pt alert and oriented lying in bed awake. No c/o pain. No
--- NOTE | 2019-03-11 07:47 | General Progress Note ---
Assessment/Plan Problem List: (1) COPD (chronic obstructive pulmonary disease) ICD Codes: J44.9 - Chronic obstructive pulmonary disease, unspecified SNOMED: 32019229 (2) CKD (chronic kidney disease) ICD Codes: N18.9 - Chronic kidney disease, unspecified SNOMED: 917920419 (3) Atrial fibrillation ICD Codes: I48.91 - Unspecified atrial fibrillation SNOMED: 82119847 Qualifiers: Qualified Codes: I48.2 - Chronic atrial fibrillation (4) DIXON (dyspnea on exertion) ICD Codes: R06.09 - Other forms of dyspnea SNOMED: 41655001 (5) CHF (congestive heart failure) ICD Codes: I50.9 - Heart failure, unspecified SNOMED: 87180414 Qualifiers: Qualified Codes: I50.33 - Acute on chronic diastolic (congestive) heart failure (6) Renal insufficiency ICD Codes: N28.9 - Disorder of kidney and ureter, unspecified SNOMED: 535855477, 070114974 Status: stable Assessment/Plan: stable for pacer npo BP rx off eliquis Subjective ROS Limited/Unobtainable: No Constitutional: Reports: malaise, weakness HEENT: Reports: no symptoms Cardiovascular: Reports: no symptoms Respiratory: Reports: no symptoms Gastrointestinal/Abdominal: Reports: no symptoms Genitourinary: Reports: no symptoms Neurologic/Psychiatric: Reports: no symptoms Endocrine: Reports: no symptoms Hematologic/Lymphatic: Reports: no symptoms Allergies: Coded Allergies: No Known Allergies (Unverified , 08/02/18) All Systems: reviewed and negative except above Subjective no complaints. sob better. npo for pacemaker. no chest pain no new questions or concerns. wants to proceed with pacemaker Objective Last 24 Hour Vital Signs Date Time Temp Pulse Resp B/P (MAP) Pulse Ox O2 Delivery O2 Flow Rate FiO2 03/11/19 04:40 156/86 (109) 03/11/19 04:10 97.8 83 18 160/85 (110) 99 03/11/19 04:02 75 03/11/19 00:00 51 03/11/19 00:00 98.3 68 18 159/98 (118) 100 03/10/19 21:19 162/83 03/10/19 21:00 Room Air 03/10/19 21:00 155/86 (109) 03/10/19 20:00 69 03/10/19 20:00 98.2 60 18 162/83 (109) 99 03/10/19 16:00 98.9 77 18 153/93 (113) 100 03/10/19 16:00 89 03/10/19 12:00 97.7 97 18 150/95 (113) 97 03/10/19 12:00 67 03/10/19 09:00 Room Air 03/10/19 08:52 60 18 99 Room Air 21 03/10/19 08:52 62 18 100 Room Air 21 03/10/19 08:44 92 03/10/19 08:44 92 153/105 03/10/19 08:00 92 03/10/19 08:00 98.7 92 16 153/105 (121) 97 Intake and Output 03/10/19 03/11/19 19:00 07:00 Intake Total 1200 ml Balance 1200 ml Other 1200 ml # Voids 3 Laboratory Tests 03/11/19 06:30: Prothrombin Time [Pending], Prothromb Time International Ratio [Pending], Activated Partial Thromboplast Time [Pending] Height (Feet): 5 Height (Inches): 5.00 Weight (Pounds): 180 Objective General Appearance: WD/WN, alert Neck: supple Cardiovascular: normal rate, irregularly irregular Respiratory/Chest: chest wall non-tender, lungs clear Abdomen: normal bowel sounds, non tender, soft, no organomegaly Edema: no edema noted Arm (L), no edema noted Arm (R), no edema noted Leg (L), no edema noted Leg (R), no edema noted Pedal (L), no edema noted Pedal (R), no edema noted Generalized Tito Nunez MD Mar 11, 2019 07:47
--- NOTE | 2019-03-11 08:01 | Anethesia Preoperative Eval ---
Anesthesia Pre-op PMH/ROS General Date of Evaluation: Mar 11, 2019 Time of Evaluation: 07:56 Anesthesiologist: Neha ASA Score: ASA 3 Mallampati Score Class I : Soft palate, uvula, fauces, pillars visible Class II: Soft palate, uvula, fauces visible Class III: Soft palate, base of uvula visible Class IV: Only hard plate visible Mallampati Classification: Class II Surgeon: Ashley Diagnosis: A fib tachy-valdo syndrom Surgical Procedure: Permanent pacemaker placement Anesthesia History: none Family History: no anesthesia problems Allergies: Coded Allergies: No Known Allergies (Unverified , 08/02/18) Patient NPO?: Yes NPO Date: Mar 11, 2019 NPO Time: 0000 Past Medical History Cardiovascular: Reports: HTN - stable , arrhythmia - atrial fibrilation, tendency to symptomatic bradycardia; Denies: CAD, CT, valve dz, other Pulmonary: Reports: JORDAN; Denies: asthma, COPD, other Gastrointestinal/Genitourinary: Reports: GERD, CRI - Cr. 1.2-1.3 stable; Denies: ESRD, other Neurologic/Psychiatric: Reports: depression/anxiety; Denies: dementia, CVA, TIA, other Endocrine: Reports: hypothyroidism; Denies: DM, steroids, other HEENT: Reports: cataract (L), cataract (R) - s/ post Sx; Denies: glaucoma, [place] (L), [place] (R), other Hematology/Immune: Reports: anemia - mild; Denies: DVT, bleeding disorder, other Musculoskeletal/Integumentary: Reports: OA; Denies: RA, DJD, DDD, edema, other Other: other - overweight PMH Narrative: as above PSxH Narrative: bilateral cataracts Anesthesia Pre-op Phys. Exam Physician Exam Last Vital Signs Date Time Temp Pulse Resp B/P (MAP) Pulse Ox O2 Delivery O2 Flow Rate FiO2 03/11/19 04:40 156/86 (109) 03/11/19 04:10 97.8 83 18 99 03/10/19 21:00 Room Air 03/10/19 08:52 21 Constitutional: NAD Neurologic: CN 2-12 intact Cardiovascular: RRR, no M/R/G Respiratory: CTA Gastrointestinal: S/NT/ND Airway Exam Mallampati Score: Class II MO: limited Neck: stiff ROM: limited Teeth: missing Dentures: no upper, no lower Anesthesia Pre-op A/P Labs Coagulation Test 03/11/19 06:30 Prothrombin Time 10.9 SEC (9.30-11.50) Prothromb Time International Ratio 1.0 (0.9-1.1) Activated Partial Thromboplast Time 26 SEC (23-33) Risk Assessment & Plan Assessment: ASA 3 Plan: MAC Pre-Antibiotics Drug: as scheduled Yimi Solomon MD Mar 11, 2019 08:01
[2019-03-11] MEDS: Aspirin EC 81mg tab ORAL SCH (09:00)
--- NOTE | 2019-03-11 09:17 | NUR ---
NURSE NOTES: Dr. Correa paged to clarify for ASA 81mg scheduled today AM. ASA needs be held today for pacemaker placement and rest of meds scheduled this AM should be administered per Dr Burroughs and order readback and carried out.
[2019-03-11] MEDS: Digoxin 0.125mg tab ORAL SCH (09:29)
[2019-03-11] MEDS: Furosemide 40mg tab ORAL SCH (09:29)
[2019-03-11] MEDS: Flonase Nasal Inhaler 16gm NASAL SCH (09:29)
[2019-03-11] MEDS: Breo Ellipta 100/25mcg - 14 dose INH SCH (10:03)
--- NOTE | 2019-03-11 12:48 | Cardiac Electrophysiology PN ---
Assessment/Plan Assessment/Plan 1. 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 Only on digoxin 0.125 mg daily. Not able to add a beta-davon or calcium-channel davon in view of bradycardic episodes. Awaiting single-chamber pacemaker in view of her chronic atrial fibrillation. It is of note the patient had multiple pauses of more than two seconds as well. Patient signed the consent. Last Eliquis dose 03/08/19. Scheduled for 09.24 today 2. Hypertension on amlodipine 5 mg daily and Lasix 40 po daily 3. Gout, on colchicine. ETEHL RN and Dr Nunez Subjective Subjective NPO for PPM implant today Objective Last 24 Hour Vital Signs Date Time Temp Pulse Resp B/P (MAP) Pulse Ox O2 Delivery O2 Flow Rate FiO2 03/11/19 12:00 97.2 97 18 157/97 (117) 98 03/11/19 10:04 80 18 99 Room Air 21 03/11/19 10:03 80 18 99 Room Air 21 03/11/19 09:29 80 03/11/19 09:28 70 126/80 03/11/19 09:00 Room Air 03/11/19 08:00 98.1 80 18 126/80 (95) 100 03/11/19 08:00 69 03/11/19 04:40 156/86 (109) 03/11/19 04:10 97.8 83 18 160/85 (110) 99 03/11/19 04:02 75 03/11/19 00:00 51 03/11/19 00:00 98.3 68 18 159/98 (118) 100 03/10/19 21:19 162/83 03/10/19 21:00 Room Air 03/10/19 21:00 155/86 (109) 03/10/19 20:00 69 03/10/19 20:00 98.2 60 18 162/83 (109) 99 03/10/19 16:00 98.9 77 18 153/93 (113) 100 03/10/19 16:00 89 Intake and Output 03/10/19 03/11/19 19:00 07:00 Intake Total 1200 ml Balance 1200 ml Other 1200 ml # Voids 3 Laboratory Tests Test 03/11/19 06:30 Prothrombin Time 10.9 SEC (9.30-11.50) Prothromb Time International Ratio 1.0 (0.9-1.1) Activated Partial Thromboplast Time 26 SEC (23-33) Objective HEAD AND NECK: Shows no JVD. LUNGS: Clear. CARDIOVASCULAR: Irregular S1 and S2 with no gallop or murmur. ABDOMEN: Soft. EXTREMITIES: No pitting edema. Mark Correa MD Mar 11, 2019 12:48
--- NOTE | 2019-03-11 12:49 | Pre-Procedure Note/Attestation ---
Pre-Procedure Note/Attestation Complete Prior to Procedure Planned Procedure: left Procedure Narrative: PPM implant Indications for Procedure Pre-Operative Diagnosis: Tachy valdo syndrome in atrial fib Attestation I attest that I discussed the nature of the procedure; its benefits; risks and complications; and alternatives (and the risks and benefits of such alternatives ), prior to the procedure, with the patient (or the patient's legal claims customer service representative). I attest that, if there was a reasonable possibility of needing a blood transfusion, the patient (or the patient's legal claims customer service representative) was given the [facility] standardized written summary, pursuant to the [place] Blood Safety Act ([place] Health and Safety Code # 1645, as amended). I attest that I re-evaluated the patient just prior to the surgery and that there has been no change in the patient's H&P, except as documented below: Mark Correa MD Mar 11, 2019 12:49
--- NOTE | 2019-03-11 13:02 | NUR ---
NURSE NOTES: Pt picked up by transporter with portable bill of lading clerk via bed to OR for pacemaker placement. No acute distress noted.
[2019-03-11] MEDS ORDERED: Lidocaine 1% Plain 30 ml INJ ONE ×2 (13:19→13:23)
[2019-03-11] MEDS ORDERED: Midazolam 2mg/2ml Inj ONE (13:22)
[2019-03-11] MEDS ORDERED: Sodium Chloride 10ml vial INJ ONE (13:22)
[2019-03-11] MEDS ORDERED: Isovue-M 300 15ml INJ ONE (13:23)
[2019-03-11] MEDS ORDERED: Sterile Water Irrig 1000ml IRRIG ONE (13:30)
[2019-03-11] MEDS ORDERED: LR 1000ml ONE (13:30)
[2019-03-11] MEDS ORDERED: NS 500ML ONE (13:30)
[2019-03-11] MEDS ORDERED: LR 1000ml 1,000 ML IVLG SCH (13:32)
[2019-03-11] MEDS ORDERED: Metoclopramide 10mg/2ml Inj IVP PRN (13:45)
[2019-03-11] MEDS ORDERED: HYDROcodone/Acetamin 5/325 tab ORAL PRN (13:45)
[2019-03-11] MEDS ORDERED: Atropine Sulfate 0.4mg/ml inj IVP PRN (13:45)
[2019-03-11] MEDS ORDERED: DiphenhydrAMINE 50mg/ml Inj IVP PRN (13:45)
[2019-03-11] MEDS ORDERED: HYDROcodone/Acetamin 7.5/325 tab ORAL PRN (13:45)
[2019-03-11] MEDS ORDERED: LORazepam Inj 2mg/ml 1ml IV PRN (13:45)
[2019-03-11] MEDS ORDERED: Hydromorphone 0.5mg/0.5ml inj IVP PRN (13:45)
[2019-03-11] MEDS ORDERED: Meperidine 50mg/ml Inj(FOR RIGORS ONLY) IVP PRN (13:45)
[2019-03-11] MEDS ORDERED: oxyCODONE HCL/Acetaminophen 5/325mg ORAL PRN (13:45)
[2019-03-11] MEDS ORDERED: Midazolam 2mg/2ml Inj IVP PRN (13:45)
[2019-03-11] MEDS ORDERED: fentaNYL 100 mcg/2 mL IV PRN (13:45)
--- NOTE | 2019-03-11 14:22 | Immediate Post-Op Evaluation ---
Immediate Post-Op Evalulation Immediate Post-Op Evalulation Procedure: Permanent Pacemaker Date of Evaluation: Mar 11, 2019 Time of Evaluation: 15:05 IV Fluids: 200 LR Blood Products: 0 Estimated Blood Loss: 10 Urinary Output: 0 Blood Pressure Systolic: 151 Blood Pressure Diastolic: 71 Pulse Rate: 85 Respiratory Rate: 16 O2 Sat by Pulse Oximetry: 100 Temperature (Fahrenheit): 97.2 Pain Score (1-10): 1 Nausea: No Vomiting: No Complications 0 Patient Status: awake, reacts, patent, none Hydration Status: adequate Dru Gram Ancef IV Given Within 1 Hr of Incision: Yes Time Given: 13:56 Karlos Oliva MD Mar 11, 2019 14:22
--- NOTE | 2019-03-11 14:42 | Brief Operative Note ---
Immediate Post Operative Note Operative Note Pre-op Diagnosis: Tachy valdo syndrome in atrial fib Procedure: VVI pacer implant Dictated [id number] Post-op Diagnosis: same as pre-op Specimen: none Complications: none Condition: stable Fluids: none Estimated Blood Loss: minimal Drains: none Implant(s) used?: Yes Mark Correa MD Mar 11, 2019 14:42
[2019-03-11] MEDS ORDERED: Tylenol #3 tab (300mg/30mg) ORAL PRN (14:45)
[2019-03-11] MEDS ORDERED: Morphine Sulfate 2mg/ml Inj(IV/IM USE ONLY) IVP PRN (14:45)
--- NOTE | 2019-03-11 15:45 | Diagnostic Imaging Report ---
Indication: Status post pacemaker Comparison: 03/06/2019 A single view chest radiograph was obtained. Findings: Pacemaker is been placed in the left anterior chest wall. A single lead projects over the right ventricle. There is no pneumothorax. The left costophrenic angle is blunted. There may be mild atelectasis at the left lung base, both findings present previously. The heart is enlarged. IMPRESSION: Status post pacemaker placement. No pneumothorax
--- NOTE | 2019-03-11 15:53 | Diagnostic Imaging Report ---
. Indication: Intraoperative imaging COMPARISON: None FINDINGS: Single fluoroscopic image was obtained intraoperatively. Single image of the lower chest showing part of the thoracic spine and the lower end of a pacemaker wire. Fluoroscopic time 60 seconds. IMPRESSION: Intraoperative imaging as described above
--- NOTE | 2019-03-11 16:00 | NUR ---
NURSE NOTES: Pt transferred from OR with transporter and RN. No signs of distress noted. On 2L O2 via n/c. No c/o pain. Applied Ice pack to left chest incision area. Incision area on lest upper chest intact and covered with transparent dressing and no s/sx of bleed of infection noted. Per RN from OR, Ice pack should be applied for 24hrs. Arm sling applied. Reinforced pt for weight bearing restriction and ROM restriction on LUE. Will continue to plan of care.
--- NOTE | 2019-03-11 19:32 | NUR ---
HAND-OFF: Report given to Sarahi STANTON. Pt remains stable.
--- NOTE | 2019-03-11 19:40 | NUR ---
NURSE NOTES: Received pt from Nba RN. Pt awake, alert, and talkative. Pt s/p pacemaker placement. Ice pack and sling applied. Bed in lowest position. Call light within reach. Incentive spirometer at bedside and encouraged. Will continue to monitor.
[2019-03-11] MEDS ORDERED: Latanoprost 0.005% Opth 2.5ml Soln BOTH EYES SCH (21:00)
[2019-03-11] MEDS: ceFAZolin sod 1 GM in D5W 55 ML IVP SCH (21:26)
--- NOTE | 2019-03-11 22:00 | Operative Note - Dictated ---
DATE OF OPERATION: 03/11/2019 PERMANENT PACEMAKER IMPLANTATION SURGEON: Mark Correa M.D. INDICATION FOR PROCEDURE: Tachy-valdo syndrome in a patient with permanent atrial fibrillation. OPERATIVE REPORT: The patient was brought into the operating room in fasting state and after informed consent was obtained. The patient was prepped and draped in usual fashion. Conscious sedation was performed by the anesthesiologist. After prep and drape under sterile condition and after the patient received antibiotics within an hour of incision, a total of 20 mL of lidocaine was given to left prepectoralis area. An incision was made along the left deltopectoral groove. Sharp and blunt dissection was made to the level of pectoralis fascia. The cephalic vein was isolated and the cephalic vein cutdown was performed. The right ventricular lead was placed through this access and was placed in right ventricular apex with excellent sensing and pacing parameters. The lead was then affixed on the pectoralis fascia. A pocket was made close to the venous access that was irrigated with antibiotic solution. The lead was then connected to the pacemaker and left in the pocket. The pocket was then closed in three layers using 2-0 Vicryl and Dermabond. The patient suffered no immediate complications from the procedure and was transferred to recovery room in stable condition. FINDINGS: The pacemaker is from [employer], model number [id number], Assurity MRI Safe, serial number [id number]. The right ventricular lead is from [employer] , 52 centimeter, serial number [id number]. The R-wave is 5 millivolts, threshold is 1.2 volts at 0.4 millisecond, impedance of 740 ohms. IMPRESSION: 1. Successful single-chamber permanent pacemaker implantation. 2. Pacemaker was programmed at a rate of 60 up to 120. 3. No immediate complications from the procedure. Mark Correa M.D. DR: Derick JOB#: [id number] CC:
[2019-03-12] VITALS: BP 125/80
[2019-03-12 04:00] VITALS: BP 151/87
[2019-03-12] MEDS: ceFAZolin sod 1 GM in D5W 55 ML IVP SCH ×2 (05:24→14:01)
--- NOTE | 2019-03-12 07:10 | NUR ---
HAND-OFF: Report given to ROMY Arango. Pt stable.
--- NOTE | 2019-03-12 07:10 | NUR ---
NURSE NOTES: NURSE NOTES: Report received from Sarahi STANTON. Pt alert and oriented. No c/o pain . On room air. No SOB noted. No acute distress noted. Rhythm with A-FIB with V-paced during previous shift. IV site in L HAND 20G SL patent and symptomatic. Bed in lowest position and locked. Call light within easy reach. Bed in lowest position and locked. Instructed pt for limited weight bearing on left arm and keep the incision site clean and dry. Will continue to plan of care.
[2019-03-12 08:00] VITALS: BP 163/100
[2019-03-12] MEDS ORDERED: FUROSEMIDE40 MG ORAL ×2 (08:28)
[2019-03-12] MEDS: Aspirin EC 81mg tab ORAL SCH ×2 (08:34→09:00)
[2019-03-12] MEDS: Furosemide 40mg tab ORAL SCH (08:34)
[2019-03-12] MEDS: Digoxin 0.125mg tab ORAL SCH (08:34)
[2019-03-12] MEDS: Flonase Nasal Inhaler 16gm NASAL SCH ×2 (08:35→08:36)
--- NOTE | 2019-03-12 09:17 | 48 Hour Post Anesthesia Eval ---
Post Anesthesia Evaluation Procedure: Permanent Pacemaker Date of Evaluation: Mar 12, 2019 Time of Evaluation: 09:15 Blood Pressure Systolic: 148 0: 76 Pulse Rate: 62 Respiratory Rate: 20 Temperature (Fahrenheit): 97.6 O2 Sat by Pulse Oximetry: 98 Airway: patent Nausea: No Vomiting: No Pain Intensity: 2 Hydration Status: adequate Cardiopulmonary Status: stable Mental Status/LOC: patient returned to baseline Follow-up Care/Observations: n/a Post-Anesthesia Complications: none Follow-up care needed: N/A Yimi Solomon MD Mar 12, 2019 09:17
[2019-03-12] MEDS: Breo Ellipta 100/25mcg - 14 dose INH SCH (09:25)
--- NOTE | 2019-03-12 11:25 | NUR ---
HAND-OFF: Pt transferred to [facility]. Report given to Preston STANTON. Pt remains stable.
[2019-03-12 11:56] VITALS: BP 152/88
[2019-03-12 16:00] VITALS: BP 143/95
--- NOTE | 2019-03-12 16:17 | Cardiac Electrophysiology PN ---
Assessment/Plan Assessment/Plan 1. 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 S/P single-chamber [employer] pacemaker 03/11/19, Pacer interrogation showed Nl Fx. Resume Eiquis. DC Norvasc. Add Lopressor 25 bid to digoxin for better rate control CXR No Ptx 2. Hypertension on Lopressor 25 bid and Lasix 40 po daily 3. Gout, on colchicine. ETHEL RN and Dr Nunez Subjective Subjective S/P PPM implant yesterday. No CP or SOB Objective Last 24 Hour Vital Signs Date Time Temp Pulse Resp B/P (MAP) Pulse Ox O2 Delivery O2 Flow Rate FiO2 03/12/19 11:56 98.1 74 20 152/88 (109) 100 03/12/19 09:17 62 20 98 03/12/19 09:00 67 18 99 Room Air 21 03/12/19 09:00 Room Air 03/12/19 09:00 67 18 99 Room Air 21 03/12/19 08:34 83 03/12/19 08:34 83 163/100 03/12/19 08:00 99.0 83 20 163/100 (121) 98 03/12/19 08:00 79 03/12/19 04:00 97.9 82 20 151/87 (108) 99 03/12/19 04:00 79 03/12/19 00:00 97.9 64 20 125/80 (95) 100 03/12/19 00:00 61 03/11/19 21:00 Room Air 03/11/19 20:00 98.0 92 20 136/82 (100) 100 03/11/19 20:00 71 03/11/19 16:20 97.5 78 18 140/77 (98) 100 03/11/19 16:15 60 17 139/85 100 Nasal Cannula 3 60 Intake and Output 03/11/19 03/12/19 19:00 07:00 Intake Total 170 ml 300 ml Balance 170 ml 300 ml Intake Oral 120 ml 300 ml IV Total 50 ml # Voids 1 1 # Bowel Movements 1 Laboratory Tests Test 03/12/19 06:08 Digoxin Level 0.8 NG/ML (0.9-2.0) L Objective HEAD AND NECK: Shows no JVD. LUNGS: Clear. CARDIOVASCULAR: Irregular S1 and S2 with no gallop or murmur. Pacer left subclavian no hematoma or oozing ABDOMEN: Soft. EXTREMITIES: No pitting edema. Mark Correa MD Mar 12, 2019 16:17
--- NOTE | 2019-03-12 16:40 | NUR ---
NURSE NOTES: Lasix d/c'd from discharge meds by Dr. Correa and updated discharge meds reconciliation.
[2019-03-12] MEDS ORDERED: LOPRESSOR25 M1 ORAL (16:44)
[2019-03-12] MEDS ORDERED: Eliquis 2.5mg tablet ORAL SCH (18:00)
[2019-03-12] MEDS ORDERED: NS 275ml ONE (18:10)
[2019-03-12] MEDS ORDERED: Tubing IV Secondary IV ONE (18:10)
--- NOTE | 2019-03-12 18:11 | NUR ---
Discharge: Patient is being discharged from medical care. Awake, alert and oriented x3. After care instructions, including referral to community resources were given. Patient verbalized understanding of After care instructions; at this time patient does not request medications, equipment or placement. Patient signed patient consent in the medical record for patient destination upon discharge. Her son, Carrillo came and picked her up. All medical devices such as cardiac catheterization technologist, IV and ID band were removed. Patient ambulated out with all personal belongings with steady gait with family member.
[2019-03-12] MEDS ORDERED: Metoprolol 25mg tab ORAL SCH (21:00)
--- NOTE | 2019-03-12 22:30 | Discharge Summary ---
DATE OF ADMISSION: 03/08/2019 DATE OF DISCHARGE: 03/12/2019 ADMISSION DIAGNOSES: 1. Congestive heart failure exacerbation. 2. Tachy-valdo syndrome. 3. Hypertension. 4. Gout. DISCHARGE DIAGNOSES: 1. Congestive heart failure exacerbation. 2. Tachy-valdo syndrome. 3. Hypertension. 4. Gout. 5. Status post pacemaker. HOSPITAL COURSE: The patient is a pleasant female with history of congestive heart failure, hypertensive heart disease, and gout, who presented with complaints of shortness of breath. She was diagnosed with CHF exacerbation. Her hospital course was complicated by AFib with RVR as well as bradycardic episodes. Cardiology consultation and EP consultation were obtained. Because of the patient's uncontrolled tachycardia and bradycardia, it was recommended that she undergo pacemaker placement. She underwent a pacemaker without complication on discharge as well. She will be discharged home with instructions to follow up in a couple weeks in the office. DISCHARGE MEDICATIONS: Please see discharge medication list for discharge medications. DIET: Cardiac diet. ACTIVITIES: Ad-andrés. FOLLOWUP: The patient will follow up in two weeks in the office. Tito Nunez M.D. DR: WALI JOB#: [id number] CC:
--- NOTE | 2019-03-15 12:39 | Cardiology Report ---
APPROVED REPORT EXAM: Two-dimensional and M-mode echocardiogram with Doppler and color Doppler. INDICATION Tachycardia M-Mode DIMENSIONS IVSd2.0 (0.7-1.1cm)Left Atrium (MM)4.4 (1.6-4.0cm) LVDd3.5 (3.5-5.6cm)Aortic Root3.6 (2.0-3.7cm) PWd1.7 (0.7-1.1cm)Aortic Cusp Exc.1.5 (1.5-2.0cm) LVDs2.2 (2.5-4.0cm) PWs1.7 cm Normal left ventricular chamber size, hyperdynamic systolic function and wall motion. Left ventricular ejection fraction estimated to be 70-75 %. Moderate concentric left ventricular hypertrophy. No evidence of pericardial effusion. Mild right atrial enlargement. Right ventricular chamber size is within normal limits. Left atrial size at upper limits of normal. Focal aortic valve sclerosis with adequate cusp excursion. Mildly thickened mitral valve leaflets with normal excursion. Mild mitral annulus and aortic root calcification. Normal pulmonic valve structure. Normal tricuspid valve structure. IVC is normal in size with physiological collapse. A color flow and spectral Doppler study was performed and revealed: Mild aortic insufficiency. Moderate mitral regurgitation. Can not determine left ventricular diastolic function by mitral diastolic velocities due to atrial fibrillation. Mild tricuspid regurgitation. Tricuspid systolic velocities suggests peak right ventricular systolic pressure of 30 mmHg. Mild pulmonic regurgitation present.
--- NOTE | 2019-03-16 21:01 | Cardiology Report ---
APPROVED REPORT EKG Measurement Heart [id number] Atrial fibrillation Septal infarct, age undetermined Abnormal ECG
== END 2019-03-12 18:11 | disposition home or self-care (01) | DRG 242 ==
LOC: EMR 17:42 → EDBEDREQ 18:05 → 2E 19:28 → EDBEDREQ 20:05 → OBSVTOIN 03-08 06:31
PROC: 3E0102A Introduction of Anti-Infective Envelope into Subcutaneous Tissue, Open Approach (ICD-10-PCS; principal; 2019-03-11 13:30)
PROC: 02HK3JZ Insertion of Pacemaker Lead into Right Ventricle, Percutaneous Approach (ICD-10-PCS; principal; 2019-03-11 13:30)
PROC: 0JH604Z Insertion of Pacemaker, Single Chamber into Chest Subcutaneous Tissue and Fascia, Open Approach (ICD-10-PCS; principal; 2019-03-11 13:30)
DX: I49.5 Sick sinus syndrome (principal); I50.33 Acute on chronic diastolic (congestive) heart failure; I13.0 Hypertensive heart and chronic kidney disease with heart failure and stage 1 through stage 4 chronic kidney disease, or unspecified chronic kidney disease; I48.2 Chronic atrial fibrillation; Z79.01 Long term (current) use of anticoagulants; M10.9 Gout, unspecified; N18.9 Chronic kidney disease, unspecified; J44.9 Chronic obstructive pulmonary disease, unspecified
CPT/HCPCS: 36415; 71045; 76000; 80053; 80162; 82248; 82550; 83690; 83735; 83880; 84484; 84550; 85025; 85610; 85730; 93005; 93306; 94003; 94150; 94640; 99285; C1786; J2250

== ENCOUNTER 2019-10-02 17:14 | Emergency (ER) | payer MEDICARE, MEDICAID ==
[~2019-10-02] VITALS: Ht 167.6 cm; Wt 79.8 kg
[~2019-10-02 17:14] MED LIST changes: +AMLODIPINE BESYL5 MG ORAL; +BREO ELLIPTA 11 EACH IH; +COLCRYS0.6 M1 PO; +DIGOXIN125 MCG ORAL; +FUROSEMIDE40 MG ORAL; +LOPRESSOR25 M1 ORAL; +LOSARTAN POTASS50 MG ORAL; +PREDNISONE10 MG ORAL
[2019-10-02 17:30] VITALS: BP 147/85
--- NOTE | 2019-10-02 17:30 | NUR ---
ED Nurse Note: Patient was advised to come to ED by Dr. Nunez d/t having abnormal lab work yesterday. Patient does not know which labwork is abnormal. Patient AxO x 4, no s/s of acute distress. Blood sent to lab.
[2019-10-02] MEDS ORDERED: FUROSEMIDE40 MG ORAL (17:40)
[2019-10-02] MEDS ORDERED: AMLODIPINE BESYL5 MG ORAL (17:40)
[2019-10-02] MEDS ORDERED: ATORVASTATIN CA40 MG ORAL (17:40)
[2019-10-02] MEDS ORDERED: METOPROLOL TART50 MG ORAL (17:42)
--- NOTE | 2019-10-02 18:20 | Emergency Room Report ---
History of Present Illness General Chief Complaint: Generalized Weakness Source: Patient, Medical Record Present Illness HPI Patient presents with reports of abnormal blood work at her primary doctor's office Contact was made and the primary physician reports abnormal potassium levels she had initial high level at which was repeated and the number appear to increase patient herself reports that several days ago she had felt somewhat weak however today she is doing significantly better Denies any other complaints denies any chest pain denies any abdominal pain denies any focal weakness denies any nausea vomiting Allergies: Coded Allergies: No Known Allergies (Unverified , 08/02/18) Patient History Past Medical History: see triage record Reviewed Nursing Documentation: PMH: Agreed; PSxH: Agreed Nursing Documentation-PMH Past Medical History: No History, Except For Hx Cardiac Problems: Yes Hx Hypertension: Yes Hx Pacemaker: Yes Hx Asthma: No Hx COPD: No Hx Diabetes: No Hx Cancer: Yes - Uterine CA Hx Gastrointestinal Problems: No Hx Dialysis: No History Of Psychiatric Problem: No Hx Neurological Problems: No - Gout Hx Cerebrovascular Accident: Yes Hx Seizures: No Review of Systems All Other Systems: negative except mentioned in HPI Physical Exam Vital Signs Date Time Temp Pulse Resp B/P (MAP) Pulse Ox O2 Delivery O2 Flow Rate FiO2 10/02/19 17:21 98.2 76 16 147/85 (105) 97 Room Air Sp02 EP Interpretation: reviewed, normal General Appearance: well appearing, no apparent distress Head: normocephalic, atraumatic Eyes: bilateral eye PERRL, bilateral eye EOMI ENT: hearing grossly normal, normal pharynx, TMs + canals normal, uvula midline Neck: full range of motion, supple, no meningismus, no bony tend Respiratory: lungs clear, normal breath sounds, no rhonchi, no respiratory distress, no retraction, no accessory muscle use Cardiovascular #1: normal peripheral pulses, regular rate, rhythm, no edema, no gallop, no JVD, no murmur Gastrointestinal: normal bowel sounds, non tender, soft, no mass, no organomegaly, non-distended, no guarding, no hernia, no pulsatile mass, no rebound Musculoskeletal: normal inspection Neurologic: motor strength/tone normal, embedded systems software developer III-XII nml as tested, oriented x3 , sensory intact, responsive Psychiatric: mood/affect normal Skin: no rash Lymphatic: normal inspection, no adenopathy Medical Decision Making Diagnostic Impression: Primary Impression: CKD (chronic kidney disease) ER Course Given the above history exam and presentation patient had repeat blood work initiated Patient's potassium today is reading at 3.2 This is discussed with the patient's primary physician and at this time does agree patient will have close outpatient follow-up And he will follow-up with outpatient laboratory Labs Test 10/02/19 18:16 White Blood Count 9.5 K/UL (4.8-10.8) Red Blood Count 5.24 M/UL (4.20-5.40) Hemoglobin 12.3 G/DL (12.0-16.0) Hematocrit 41.4 % (37.0-47.0) Mean Corpuscular Volume 79 FL (80-99) Mean Corpuscular Hemoglobin 23.4 PG (27.0-31.0) Mean Corpuscular Hemoglobin Concent 29.7 G/DL (32.0-36.0) Red Cell Distribution Width 18.5 % (11.6-14.8) Platelet Count 217 K/UL (150-450) Mean Platelet Volume 9.3 FL (6.5-10.1) Neutrophils (%) (Auto) 63.3 % (45.0-75.0) Lymphocytes (%) (Auto) 27.8 % (20.0-45.0) Monocytes (%) (Auto) 6.5 % (1.0-10.0) Eosinophils (%) (Auto) 0.6 % (0.0-3.0) Basophils (%) (Auto) 1.7 % (0.0-2.0) Sodium Level 146 MMOL/L (136-145) Potassium Level 3.2 MMOL/L (3.5-5.1) Chloride Level 107 MMOL/L (98-107) Carbon Dioxide Level 27 MMOL/L (21-32) Anion Gap 12 mmol/L (5-15) Blood Urea Nitrogen 24 mg/dL (7-18) Creatinine 1.4 MG/DL (0.55-1.30) Estimat Glomerular Filtration Rate mL/min (>60) Glucose Level 98 MG/DL (74-106) Calcium Level 8.9 MG/DL (8.5-10.1) Rhythm Strip Diag. Results EP Interpretation: yes Rate: 70 Rhythm: no PVC's, no ectopy, other - paced Last Vital Signs Date Time Temp Pulse Resp B/P (MAP) Pulse Ox O2 Delivery O2 Flow Rate FiO2 10/02/19 17:21 98.2 76 16 147/85 (105) 97 Room Air Status: improved Disposition: HOME, SELF-CARE Condition: Improved Additional Instructions: Patient is provided with the discharge instructions notified to follow up with primary doctor in the next 2-3 days otherwise return to the er with any worsening symptoms. Please note that this report is being documented using [employer] technology. This can lead to erroneous entry secondary to incorrect interpretation by the dictating instrument. Jennifer Saini DO Oct 02, 2019 18:20
[2019-10-02 18:31] LABS: BASOPHILS % (AUTO) 1.7 % (0.0-2.0); EOSINOPHILS % (AUTO) 0.6 % (0.0-3.0); HEMATOCRIT 41.4 % (37.0-47.0); HEMOGLOBIN 12.3 G/DL (12.0-16.0); LYMPHOCYTES % (AUTO) 27.8 % (20.0-45.0); MEAN CORPUSCULAR VOLUME 79 FL (80-99); MONOCYTES % (AUTO) 6.5 % (1.0-10.0); NEUTROPHILS % (AUTO) 63.3 % (45.0-75.0); PLATELET COUNT 217 K/UL (150-450); RED BLOOD COUNT 5.24 M/UL (4.20-5.40); RED CELL DISTRIBUTION WIDTH 18.5 % (11.6-14.8); WHITE BLOOD COUNT 9.5 K/UL (4.8-10.8)
[2019-10-02 19:04] LABS: ANION GAP 12 mmol/L (5-15); BLOOD UREA NITROGEN 24 mg/dL (7-18); CALCIUM 8.9 MG/DL (8.5-10.1); CARBON DIOXIDE 27 MMOL/L (21-32); CHLORIDE 107 MMOL/L (98-107); CREATININE 1.4 MG/DL (0.55-1.30); POTASSIUM 3.2 MMOL/L (3.5-5.1); SODIUM 146 MMOL/L (136-145)
--- NOTE | 2019-10-02 19:05 | NUR ---
HAND-OFF: Report given to Lorie STANTON.
[2019-10-02 19:50] VITALS: BP 147/85
--- NOTE | 2019-10-02 19:50 | NUR ---
ER DISCHARGE NOTE: Patient is cleared to be discharged per ERMD, pt is aox4, on room air, with stable vital signs. pt was given dc and prescription instructions, pt was able to verbalize understanding, pt id band and iv site removed without complications. pt is able to ambulate with steady gait. pt took all belongings.
== END 2019-10-02 19:50 | disposition home or self-care (01) ==
LOC: EMR 18:05
DX: I12.9 Hypertensive chronic kidney disease with stage 1 through stage 4 chronic kidney disease, or unspecified chronic kidney disease (principal); N18.9 Chronic kidney disease, unspecified; I51.9 Heart disease, unspecified; Z95.0 Presence of cardiac pacemaker; Z85.42 Personal history of malignant neoplasm of other parts of uterus; Z86.73 Personal history of transient ischemic attack (TIA), and cerebral infarction without residual deficits
CPT/HCPCS: 36415; 80048; 85025; 93005; 99284